=== PATIENT | female | born 1955 | race Caucasian/White ===

== ENCOUNTER 2023-03-08 16:31 | Inpatient (IN) ==
[2023-03-08] MEDS ORDERED: SODIUM CHLORIDE 0.9% 1000ML 1,000 ML IV ONE (17:31)
[2023-03-08] MEDS ORDERED: KETOROLAC TROMETHAMINE 15 MG/ML VIAL IV ONE ×2 (17:32→20:00)
[2023-03-08 17:45] LABS: Appearance Urine Cloudy (Clear); Bacteria Urine Automated Negative (Negative); Blood Urine 1+ (Negative); Color Urine Orange; Epithelial Cell Urine Auto >30 /lpf (0-5); Glucose Urine UA Negative (Negative); Ketones Urine Trace (Negative); Leukocyte Esterase Urine Trace (Negative); Nitrite Urine Negative (Negative); Protein Urine 2+ (Negative); Specific Gravity Urine 1.017 (1.000-1.030); Urobilinogen Urine Negative (Negative); pH Urine 5.5 (4.5-7.5)
[2023-03-08 18:07] LABS: Bilirubin Urine 1+ (Negative)
[2023-03-08 18:11] LABS: Basophils # (auto) 0.05 K/uL (0-0.2); Basophils % (auto) 0.2 %; Eosinophils # (auto) 0.04 K/uL (0-0.50); Eosinophils % (auto) 0.2 %; Hematocrit (blood only) 40.5 % (37.0-47.0); Hemoglobin 14.1 g/dl (12.0-16.0); Immature Granulocytes # (auto) 0.11 K/uL (0.01-0.20); Immature Granulocytes % (auto) 0.5 %; Lymphocytes % (auto) 9.8 %; Mean Corpuscular Hgb Conc 34.8 g/dL (32.0-36.0); Mean Corpuscular Volume 83.3 fL (80.0-100.0); Mean Platelet Volume 11.6 fL (9.4-12.4); Monocytes # (auto) 1.45 K/uL (0.11-0.59); Monocytes % (auto) 6.8 %; Neutrophils # (auto) 17.66 K/uL (1.40-6.50); Neutrophils % (auto) 82.5 %; Platelet Count 314 K/uL (130-400); RDW Coefficient of Variation 13.4 % (11.5-14.5); RDW Standard Deviation 41.2 fL (36.4-46.3); Red Blood Count 4.86 M/uL (4.20-5.40); White Blood Count 21.41 K/ul (4.8-10.8)
--- NOTE | 2023-03-08 18:16 | Emergency Department Note ---
Impression & Plan Abdominal pain, Acute pancreatitis, Leukocytosis ED Provider Note NAME: LUZ MARINA AUSTIN AGE: 67 SEX: F : 1955 ARRIVES VIA: Walk-In INFORMANT: Patient ED PROVIDER(S): Barry Sharif DO CHIEF COMPLAINT: abdominal pain HPI: Patient is a 67-year-old female who presents to the ER for right upper quadrant abdominal pain associate with nausea and vomiting. Patient has had no diarrhea. It has been present for the past 2 to 3 days. Pain is focal in the right upper quadrant. Denies any headache or change in vision. No chest pain or shortness of breath. No dysuria, urgency, or frequency. No previous abdominal surgeries. She was drinking water when she came in. She has not been eating much as she believes it makes it worse. She does not drink alcohol. PAST MEDICAL HISTORY:See Below PAST SURGICAL HISTORY:See Below FAMILY HISTORY:See Below SOCIAL HISTORY:See Below HOME MEDICATIONS:See Below ALLERGIES:See Below VITALS:See Below PHYSICAL EXAMINATION: GENERAL: Sitting up in bed, alert, well appearing, well nourished, no distress, non-toxic EYE EXAM: normal conjunctiva. OROPHARYNX: mucous membranes are moist NECK: supple, no nuchal rigidity, no adenopathy, non-tender LUNGS: Clear to auscultation. Normal chest wall mechanics HEART: no murmurs, S1 normal and S2 normal ABDOMEN: abdomen soft, RUQ abd pain, normo-active bowel sounds, no masses, no rebound or guarding. UPPER EXTREMITIES: upper extremities are grossly normal. LOWER EXTREMITIES: No pitting edema. NEURO EXAM: Normal sensorium, cranial nerves II-XII grossly intact, normal speech, no gross weakness of arms, no gross weakness of legs. MEDICAL DECISION MAKING: Patient is a 67-year-old female who presents ER for periumbilical/epigastric abdominal pain associate with nausea vomiting. IV was established blood work was obtained. Labs show leukocytosis 21,000. No significant anemia. BMP with mild hypokalemia 3.2. LFTs bilirubin was unremarkable with exception of a T. bili at 1.2. Lipase mildly elevated at 100. UA was contaminated with multiple epithelial cells. She was given IV Zosyn. COVID was negative. She was given IV pain medications. She was updated at bedside. Discussed with hospitalist Dr. Palapu approved for further evaluation management and treatment. She was given IV fluids. Patient was agreeable for admission. Did update her sister who was present at bedside during the whole evaluation and did provide additional history. Discussed with her care managers for admission. Triage Nursing notes reviewed. Limited review of prior medical records performed Vital Signs: reviewed and remarkable for tachy Differential diagnosis: Differential diagnoses includes but is not limited to gastritis, peptic ulcer disease, GERD, gallbladder disease, pancreatitis, small bowel obstruction, appendicitis, diverticulitis, hernia, urinary tract infection, torsion, perforation, trauma, infectious. ER treatment provided: See below Diagnostics interpreted by me include EKG and cardiac monitoring as listed below: -Cardiac Monitoring: An order was placed for continuous cardiac monitoring. The monitor shows a rate of 101 with sinus rhythm. -ECG: none -Laboratory studies:Interpreted by me as stated above in MDM and shown below. Imaging studies: Xrays: As interpreted by me:none CTs show: CT abdomen pelvis showed inflammation around the pancreas per my read CT abdomen pelvis per radiology showed pancreatitis with dilation of pancreatic duct Consultation(s): As described in MDM Procedures:none Critical Care: None Past Med/Surg History Social History Smoking Status: Former smoker Preferred Language: Guinean Feels Safe at Home: Yes Allergies Allergies Allergy/AdvReac Type Severity Reaction Status Date / Time oak Allergy Severe EYES SWELL Verified 03/08/23 17:49 SHUT & CRACK AT CORNERS ANTIBIOTICS Allergy Severe SEE COMMENT Uncoded 03/08/23 17:49 Home Meds Home Medications Medication Instructions Recorded Confirmed B 12 Complex 1 tab PO QPM 03/08/23 03/08/23 Vitamin K 3 1 tab PO QPM 03/08/23 03/08/23 amlodipine 5 mg tablet 5 mg PO QAM 03/08/23 03/08/23 atorvastatin 20 mg tablet 20 mg PO QAM 03/08/23 03/08/23 calcium carbonate 600 mg-vitamin 1 tab PO QPM 03/08/23 03/08/23 D3 10 mcg (400 unit) tablet (Calcium 600 + D(3)) cholecalciferol (vitamin D3) 25 0 mcg PO QPM 03/08/23 03/08/23 mcg (1,000 unit) capsule (Vitamin D3) coQ10 (ubiquinol) 200 mg capsule 200 mg PO QPM 03/08/23 03/08/23 ferrous sulfate 325 mg (65 mg 325 mg PO 3XWK 03/08/23 03/08/23 iron) tablet (iron) lisinopril 20 mg tablet 20 mg PO QAM 03/08/23 03/08/23 Results & Data (ED) Vital Signs Vital Signs - 24 hr 03/08/23 16:36 Temperature 36.8 C Temperature Source Temporal Artery Scan Pulse Rate 110 H Respiratory Rate 18 Respiratory Effort / Characteristics Non-Labored Blood Pressure 126/87 Blood Pressure Mean 100 Pulse Oximetry 97 Oxygen Delivery Method Room Air Sepsis Recent Fever Within 48 Hours No Sepsis New/Unexplained Change in Mental Status N/A Sepsis Action Taken by Nursing No Action Required Laboratory Data 03/08/23 17:56 03/08/23 17:56 Lab Results 03/08/23 03/08/23 03/08/23 Range/Units 17:35 17:56 17:56 WBC 21.41 H (4.8-10.8) K/ul RBC 4.86 (4.20-5.40) M/uL Hgb 14.1 (12.0-16.0) g/dl Hct 40.5 (37.0-47.0) % MCV 83.3 (80.0-100.0) fL MCH 29.0 (25.0-34.0) pg MCHC 34.8 (32.0-36.0) g/dL RDW Std Deviation 41.2 (36.4-46.3) fL RDW Coeff of Ivon 13.4 (11.5-14.5) % Plt Count 314 (130-400) K/uL MPV 11.6 (9.4-12.4) fL Immature Gran % (Auto) 0.5 % Neut % (Auto) 82.5 % Lymph % (Auto) 9.8 % Adams % (Auto) 6.8 % Eos % (Auto) 0.2 % Baso % (Auto) 0.2 % Neut # (Auto) 17.66 H (1.40-6.50) K/uL Lymph # (Auto) 2.10 (1.2-3.4) K/uL Adams # (Auto) 1.45 H (0.11-0.59) K/uL Eos # (Auto) 0.04 (0-0.50) K/uL Baso # (Auto) 0.05 (0-0.2) K/uL Immature Gran # (Auto) 0.11 (0.01-0.20) K/uL Sodium 132 L (136-145) mmol/L Potassium 3.2 L (3.5-5.1) mmol/L Chloride 100 (98-107) mmol/L Carbon Dioxide 23 (21-32) mmol/L Anion Gap 9 (3-11) BUN 20 (6-23) mg/dl Creatinine 0.94 (0.6-1.2) mg/dl Est Cr Clr Drug Dosing 55.0 ml/min Est GFR ( Amer) 72.2 ml/min Est GFR (Non-Af Amer) 62.3 ml/min BUN/Creatinine Ratio 21.3 H (10-20) Glucose 110 H (70-99(Fasting)) mg/dl Calcium 9.5 (8.6-10.3) mg/dl Total Bilirubin 1.2 H (0.2-1.0) mg/dl AST 28 (13-39) U/L ALT 34 (7-52) U/L Alkaline Phosphatase 120 H (34-104) U/L Total Protein 7.8 (6.0-8.3) gm/dl Albumin 4.0 (3.4-5.0) gm/dl Globulin 3.8 (2.5-4.0) gm/dl Albumin/Globulin Ratio 1.1 (0.9-2) Lipase 94 H (11-82) U/L Urine Color [place] Urine Appearance Cloudy A (Clear) Urine pH 5.5 (4.5-7.5) Ur Specific [place] 1.017 (1.000-1.030) Urine Protein 2+ H (Negative) Urine Glucose (UA) Negative (Negative) Urine Ketones Trace H (Negative) Urine Blood 1+ H (Negative) Urine Nitrite Negative (Negative) Urine Bilirubin 1+ H (Negative) Urine Urobilinogen Negative (Negative) Ur Leukocyte Esterase Trace H (Negative) Urine WBC (Auto) 5-10 H (0-5) /hpf Urine RBC (Auto) 5-10 H (0-4) /hpf U Hyaline Cast (Auto) 5-10 H (0-5) /lpf U Epithel Cells (Auto) >30 H (0-5) /lpf Urine Bacteria (Auto) Negative (Negative) Ur Renal Epithelial Cell Not Reportable Granular Casts 1-5 H (0) /lpf SARS-CoV-2, RNA, NAAT (NEGATIVE) 03/08/23 Range/Units 20:13 WBC (4.8-10.8) K/ul RBC (4.20-5.40) M/uL Hgb (12.0-16.0) g/dl Hct (37.0-47.0) % MCV (80.0-100.0) fL MCH (25.0-34.0) pg MCHC (32.0-36.0) g/dL RDW Std Deviation (36.4-46.3) fL RDW Coeff of Ivon (11.5-14.5) % Plt Count (130-400) K/uL MPV (9.4-12.4) fL Immature Gran % (Auto) % Neut % (Auto) % Lymph % (Auto) % Adams % (Auto) % Eos % (Auto) % Baso % (Auto) % Neut # (Auto) (1.40-6.50) K/uL Lymph # (Auto) (1.2-3.4) K/uL Adams # (Auto) (0.11-0.59) K/uL Eos # (Auto) (0-0.50) K/uL Baso # (Auto) (0-0.2) K/uL Immature Gran # (Auto) (0.01-0.20) K/uL Sodium (136-145) mmol/L Potassium (3.5-5.1) mmol/L Chloride (98-107) mmol/L Carbon Dioxide (21-32) mmol/L Anion Gap (3-11) BUN (6-23) mg/dl Creatinine (0.6-1.2) mg/dl Est Cr Clr Drug Dosing ml/min Est GFR ( Amer) ml/min Est GFR (Non-Af Amer) ml/min BUN/Creatinine Ratio (10-20) Glucose (70-99(Fasting)) mg/dl Calcium (8.6-10.3) mg/dl Total Bilirubin (0.2-1.0) mg/dl AST (13-39) U/L ALT (7-52) U/L Alkaline Phosphatase (34-104) U/L Total Protein (6.0-8.3) gm/dl Albumin (3.4-5.0) gm/dl Globulin (2.5-4.0) gm/dl Albumin/Globulin Ratio (0.9-2) Lipase (11-82) U/L Urine Color Urine Appearance (Clear) Urine pH (4.5-7.5) Ur Specific [place] (1.000-1.030) Urine Protein (Negative) Urine Glucose (UA) (Negative) Urine Ketones (Negative) Urine Blood (Negative) Urine Nitrite (Negative) Urine Bilirubin (Negative) Urine Urobilinogen (Negative) Ur Leukocyte Esterase (Negative) Urine WBC (Auto) (0-5) /hpf Urine RBC (Auto) (0-4) /hpf U Hyaline Cast (Auto) (0-5) /lpf U Epithel Cells (Auto) (0-5) /lpf Urine Bacteria (Auto) (Negative) Ur Renal Epithelial Cell Granular Casts (0) /lpf SARS-CoV-2, RNA, NAAT NEGATIVE (NEGATIVE) Administered Medications Discontinued Medications Sodium Chloride (Nss 1000ml) 1,000 mls @ 999 mls/hr IV .Q1H1M ONE Stop: 03/08/23 18:31 Last Infusion: 03/08/23 19:39 Dose: 0 mls/hr Documented By: Admin: 03/08/23 18:11 Dose: 999 mls/hr Documented By: CONNIE Piperacillin Sod/Tazobactam Sod (Zosyn) 4.5 gm in 120 mls @ 240 mls/hr IV NOW ONE Stop: 03/08/23 18:51 Last Infusion: 03/08/23 19:39 Dose: 0 mls/hr Documented By: Admin: 03/08/23 19:05 Dose: 240 mls/hr Documented By: DENA Piperacillin Sod/Tazobactam Sod (Zosyn) 4.5 gm in 120 mls @ 240 mls/hr IV NOW ONE Stop: 03/08/23 19:28 Last Admin: 03/08/23 19:31 Dose: Not Given Documented By: DENA Ioversol (Optiray 350 100ml) 81 ml IV ONCE ONE Stop: 03/08/23 18:56 Last Admin: 03/08/23 18:55 Dose: 81 ml Documented By: MOHSEN Ketorolac Tromethamine (Ketorolac Tromethamine 15 Mg/Ml Vial) 10 mg IV NOW ONE Stop: 03/08/23 17:33 Last Admin: 03/08/23 18:11 Dose: 10 mg Documented By: AP Imaging Data Radiologist's Impression: Abdomen/Pelvis CT 03/08/23 17:31 CT SCAN OF THE ABDOMEN AND PELVIS WITH IV CONTRAST CLINICAL HISTORY: Right upper quadrant abdominal pain. COMPARISON STUDY: No priors. TECHNIQUE: Following the IV administration of 81 cc of Optiray 350, CT scan of the abdomen and pelvis is performed from the lung bases to the proximal femora. Images are reviewed in the axial, sagittal, and coronal planes. IV contrast was administered without complication. A dose lowering technique was utilized adhering to the principles of ALARA. CT DOSE: 622.73 mGy.cm FINDINGS: Lung bases: The heart is normal in size and without pericardial effusion. The lung bases are clear. Liver: The contrast-enhanced liver is top normal in size. The liver demonstrates diffusely diminished attenuation indicating steatosis. Fatty sparing is seen adjacent to the gallbladder fossa. There is no intrahepatic biliary ductal dilatation. The hepatic veins and portal veins are patent. Gallbladder: Unremarkable. Spleen: Normal in size and attenuation. Pancreas: The pancreas is enlarged and edematous. There is peripancreatic inflammation and fluid consistent with acute pancreatitis. The gland enhances t hroughout. No organized peripancreatic fluid collection is identified. The distal pancreatic duct is mildly dilated measuring up to 6 mm. The splenic vein is patent. Adrenal glands: Unremarkable. Kidneys: The contrast enhanced kidneys are normal in size and without hydronephrosis. The kidneys enhance symmetrically. Abdominal vasculature: The abdominal aorta is normal in course and caliber noting moderate atherosclerotic calcification. Bowel: There is moderate colonic diverticulosis without CT evidence of acute diverticulitis. No bowel obstruction is seen. Residual enteric contrast is seen in the right colon. The appendix is well-visualized and normal. Peritoneum: There is no intraperitoneal free air or abdominal ascites. There is a fat-containing umbilical hernia. Lymphadenopathy: None. Pelvic viscera: The bladder, uterus, and adnexa are normal as visualized. Skeletal structures: The skeletal structures are osteopenic. No lytic or blastic lesions are seen. There is mild to moderate lumbosacral spondylosis. Sclerotic change is noted in the pubic symphysis. IMPRESSION: 1. Findings are consistent with acute pancreatitis. Correlate with clinical and laboratory findings. 2. The gland enhances throughout. No organized peripancreatic fluid collection is seen. 3. The distal pancreatic duct is dilated measuring up to 6 mm. This is of indeterminate in appearance. Follow-up with a dedicated pancreas protocol CT or MRI in several weeks' time (following resolution of acute pancreatitis) is recommended to reassess the underlying pancreatic parenchyma and exclude underlying mass lesion. 4. Hepatic steatosis. 5. Colonic diverticulosis without CT evidence of acute diverticulitis. 6. Additional findings as above. ACT 112: Negative or not required by law. Electronically signed by: Albino Mccormack M.D. 03/08/2023 8:33 PM Discharge Plan Visit Data Chief Complaint: Referred by Doctor Stated Complaint: PAIN IN BACK, ABDOMINAL PAIN, CONSTIPATION ED Provider: Barry Sharif Discharge Problem: Abdominal pain, Acute pancreatitis, Leukocytosis Forms Stand Alone Forms: [employer] Prescriptions Prescriptions: No Action B 12 Complex 1 tab PO QPM Rx Instructions: UNKNOWN STRENGTH atorvastatin 20 mg tablet 20 mg PO QAM lisinopril 20 mg tablet 20 mg PO QAM amlodipine 5 mg tablet 5 mg PO QAM ferrous sulfate [iron] 325 mg (65 mg iron) Tablet 325 mg PO 3XWK cholecalciferol (vitamin D3) [Vitamin D3] 25 mcg (1,000 unit) Capsule 0 mcg PO QPM Rx Instructions: PT UNSURE OF STRENGTH calcium carbonate-vitamin D3 [Calcium 600 + D(3)] 600 mg-10 mcg (400 unit) Tablet 1 tab PO QPM coQ10 (ubiquinol) 200 mg Capsule 200 mg PO QPM Vitamin K 3 1 tab PO QPM Rx Instructions: UNKNOWN STRENGTH Referrals Referrals: Amauri Antony MD [Primary Care Provider] -
[2023-03-08] MEDS ORDERED: PIPERACILLIN/TAZOBACTAM 4.5 GM/120 ML BAG IV ONE ×2 (18:22→18:59)
[2023-03-08 18:24] LABS: Albumin Globulin Ratio 1.1 (0.9-2); BUN Creatinine Ratio 21.3 (10-20); Bilirubin,Total 1.2 mg/dl (0.2-1.0); Calcium 9.5 mg/dl (8.6-10.3); Est GFR (African American) 72.2 ml/min; Est GFR (Non-African American) 62.3 ml/min; Globulin 3.8 gm/dl (2.5-4.0); Potassium 3.2 mmol/L (3.5-5.1); Total Protein 7.8 gm/dl (6.0-8.3)
[2023-03-08] MEDS ORDERED: OPTIRAY 350 100ml IV ONE (18:55)
--- NOTE | 2023-03-08 20:36 | CT Scan Report ---
CT SCAN OF THE ABDOMEN AND PELVIS WITH IV CONTRAST CLINICAL HISTORY: Right upper quadrant abdominal pain. COMPARISON STUDY: No priors. TECHNIQUE: Following the IV administration of 81 cc of Optiray 350, CT scan of the abdomen and pelvi s is performed from the lung bases to the proximal femora. Images are reviewed in the axial, sagittal , and coronal planes. IV contrast was administered without complication. A dose lowering technique wa s utilized adhering to the principles of ALARA. CT DOSE: 622.73 mGy.cm FINDINGS: Lung bases: The heart is normal in size and without pericardial effusion. The lung bases are clear. Liver: The contrast-enhanced liver is top normal in size. The liver demonstrates diffusely diminished attenuation indicating steatosis. Fatty sparing is seen adjacent to the gallbladder fossa. There is no intrahepatic biliary ductal dilatation. The hepatic veins and portal veins are patent. Gallbladder: Unremarkable. Spleen: Normal in size and attenuation. Pancreas: The pancreas is enlarged and edematous. There is peripancreatic inflammation and fluid cons istent with acute pancreatitis. The gland enhances throughout. No organized peripancreatic fluid guanako ection is identified. The distal pancreatic duct is mildly dilated measuring up to 6 mm. The splenic vein is patent. Adrenal glands: Unremarkable. Kidneys: The contrast enhanced kidneys are normal in size and without hydronephrosis. The kidneys enh ance symmetrically. Abdominal vasculature: The abdominal aorta is normal in course and caliber noting moderate atheroscle rotic calcification. Bowel: There is moderate colonic diverticulosis without CT evidence of acute diverticulitis. No bowel obstruction is seen. Residual enteric contrast is seen in the right colon. The appendix is well-vis ualized and normal. Peritoneum: There is no intraperitoneal free air or abdominal ascites. There is a fat-containing umbi lical hernia. Lymphadenopathy: None. Pelvic viscera: The bladder, uterus, and adnexa are normal as visualized. Skeletal structures: The skeletal structures are osteopenic. No lytic or blastic lesions are seen. Th ere is mild to moderate lumbosacral spondylosis. Sclerotic change is noted in the pubic symphysis. IMPRESSION: 1. Findings are consistent with acute pancreatitis. Correlate with clinical and laboratory findings. 2. The gland enhances throughout. No organized peripancreatic fluid collection is seen. 3. The distal pancreatic duct is dilated measuring up to 6 mm. This is of indeterminate in appearance . Follow-up with a dedicated pancreas protocol CT or MRI in several weeks' time (following resolution of acute pancreatitis) is recommended to reassess the underlying pancreatic parenchyma and exclude u nderlying mass lesion. 4. Hepatic steatosis. 5. Colonic diverticulosis without CT evidence of acute diverticulitis. 6. Additional findings as above. ACT 112: Negative or not required by law. Electronically signed by: Albino Mccormack M.D. 03/08/2023 8:33 PM
--- NOTE | 2023-03-08 23:09 | History and Physical Report ---
DATE OF ADMISSION: 03/08/2023. CHIEF COMPLAINT: Abdominal pain. HISTORY OF PRESENT ILLNESS: A 67-year-old female with past medical history significant for prediabetes, hypertension, restless legs syndrome, generalized anxiety disorder, history of obesity, who presents with severe abdominal pain starting last Friday. It is in the center of the abdomen initially radiating to flank then now radiating to back, it is 7-8/10 in severity. Also, some nausea. She had a low-grade fever on and Friday and she had episode of vomiting on , but right now she has lot of nausea and not eating much food because of nausea for the last few days and did not move her bowel since her symptom started. Normal bladder movements. No chest pain, no shortness of breath, no cough, no headache, no blurred visions. Lightheaded because not eating. No earache, no runny nose, no sore throat. Currently, resting comfortably and hemodynamically stable. ALLERGIES: TO SULFA ANTIBIOTICS, AMPICILLIN, CAT DANDER. PAST MEDICAL HISTORY: As mentioned above. PAST SURGICAL HISTORY: Colonoscopy, dental surgery, foreign body removal from right hand, relieve of inner eye pressure, cataract surgery. MEDICATIONS: The patient is on amlodipine 5 mg p.o. daily, atorvastatin 20 mg p.o. daily, B12 complex one tablet daily, calcium carbonate plus vitamin D one tablet p.o. p.m., ferrous sulfate 325 mg 3 times daily, lisinopril 40 mg p.o. daily. FAMILY HISTORY: Significant for brother has alcoholism; father has alcoholism, diabetes, heart attack at age of 68, hypertension; mother had stroke, alcoholism, diabetes, history of stroke. SOCIAL HISTORY: . Quit smoking in 2009. Alcohol, rarely. No drug use. REVIEW OF SYSTEMS: As per HPI. Rest of the review of systems is negative. PHYSICAL EXAMINATION: GENERAL: The patient is of moderate build, not in acute distress. VITAL SIGNS: Temperature 36.8, pulse 110, respiratory rate 18, blood pressure 126/87, oxygen 97% on room air. HEENT: Pupils equal, round and reactive to light. Oral mucosa moist. NECK: No JVD, no neck masses. CARDIOVASCULAR: S1 and S2 heard. Regular rate and rhythm. No murmur, no gallop. RESPIRATORY SYSTEM: Normal AP diameter. No accessory muscle use. No wheezing, no crackles. ABDOMEN: Soft, bowel sounds present. Mild tenderness in the epigastric region. No guarding, no rigidity, no distention. CENTRAL NERVOUS SYSTEM: Cranial nerves II-XII grossly intact, nonfocal. EXTREMITIES: No edema, no erythema. LABORATORY DATA: WBC 21, hemoglobin 14.1, hematocrit 40.5, platelets 314. Sodium 132, potassium 3.2, chloride 100, bicarbonate 23, BUN 20, creatinine 0.9, serum glucose 110, calcium 9.5, total bilirubin 1.2, AST 28, ALT 34, alkaline phosphatase 120. Lipase 94. Urinalysis, trace ketone, trace leukocyte esterase. SARS-CoV-2 rapid test negative. IMAGING DATA: CT abdomen and pelvis with IV contrast consistent with acute pancreatitis, no organized peripancreatic fluid seen. Distal pancreatic ductal dilatation 6 mm indeterminate significance. Follow up dedicated pancreas protocol CT or MRI in several weeks is recommended. Colonic diverticulosis without evidence of diverticulitis. ASSESSMENT AND PLAN: A 67-year-old female presents with abdominal pain and found to have acute pancreatitis. 1. Acute pancreatitis. The patient has no history of alcoholism and no gallstones. Etiology unclear. The patient says she is on lisinopril for less than 1 year. We will keep her n.p.o., IV Ringer's [id number] mL per hour, IV antiemetics, IV pain medication p.r.n. Consult GI in the a.m. for further recommendations. 2. Hypertension: Continue amlodipine and lisinopril. Monitor the blood pressure. 3. Leukocytosis: Possible UTI. Omnicef. Follow the cultures. 4. Hyperlipidemia: On statin. 5. Dilated Pancreatic duct? Needs followup. 6. Deep venous thrombosis prophylaxis: Lovenox. DISPOSITION: Closely monitor in the medical floor. PT/OT prior to discharge. Social service to help with discharge planning. Job ID: [id number] [facility]
[2023-03-08] MEDS ORDERED: POTASSIUM CHLORIDE CRTAB 20 MEQ TABCR PO STA (23:24)
[2023-03-08] MEDS ORDERED: ONDANSETRON INJ 2 MG/ML 2 ML VIAL IV PRN (23:24)
[2023-03-08] MEDS ORDERED: HYDROmorphone INJ 0.5 MG/0.5 ML SYR IV PRN (23:24)
[2023-03-08] MEDS: ACETAMINOPHEN 325 MG TAB PO PRN (23:38)
[2023-03-08] MEDS: LACTATED RINGER'S 1,000 ML IV SCH (23:39)
[2023-03-09] MEDS: ENOXAPARIN INJ 40 MG/0.4 ML SYR SQ SCH ×2 (00:06→19:48)
[2023-03-09] MEDS: ACETAMINOPHEN 325 MG TAB PO PRN ×5 (04:50→22:56)
[2023-03-09] MEDS: LACTATED RINGER'S 1,000 ML IV SCH ×3 (04:50→20:07)
[2023-03-09 06:47] LABS: Basophils # (auto) 0.05 K/uL (0-0.2); Basophils % (auto) 0.4 %; Eosinophils # (auto) 0.13 K/uL (0-0.50); Eosinophils % (auto) 0.9 %; Hematocrit (blood only) 39.1 % (37.0-47.0); Hemoglobin 13.1 g/dl (12.0-16.0); Immature Granulocytes # (auto) 0.08 K/uL (0.01-0.20); Immature Granulocytes % (auto) 0.6 %; Lymphocytes # (auto) 1.71 K/uL (1.2-3.4); Lymphocytes % (auto) 12.1 %; Mean Corpuscular Hemoglobin 28.9 pg (25.0-34.0); Mean Corpuscular Hgb Conc 33.5 g/dL (32.0-36.0); Mean Corpuscular Volume 86.1 fL (80.0-100.0); Mean Platelet Volume 11.4 fL (9.4-12.4); Monocytes # (auto) 1.09 K/uL (0.11-0.59); Monocytes % (auto) 7.7 %; Neutrophils # (auto) 11.12 K/uL (1.40-6.50); Neutrophils % (auto) 78.3 %; Platelet Count 264 K/uL (130-400); RDW Coefficient of Variation 13.5 % (11.5-14.5); RDW Standard Deviation 42.5 fL (36.4-46.3); Red Blood Count 4.54 M/uL (4.20-5.40); White Blood Count 14.18 K/ul (4.8-10.8)
[2023-03-09 07:04] LABS: Calcium 8.9 mg/dl (8.6-10.3); Creatinine Clr Calc Pharmacy 70.8 ml/min; Est GFR (African American) 98.1 ml/min; Est GFR (Non-African American) 84.6 ml/min; Magnesium 2.2 mg/dl (1.7-2.4); Potassium 3.7 mmol/L (3.5-5.1)
[2023-03-09] MEDS: CEFDINIR 300 MG CAP PO SCH ×2 (08:19→20:50)
[2023-03-09] MEDS: ATORVASTATIN 20 MG TAB PO SCH (08:19)
[2023-03-09] MEDS: amLODIPine BESYLATE 5 MG TAB PO SCH (08:19)
--- NOTE | 2023-03-09 13:11 | Hospitalist Progress Note ---
Date of Service March 09, 2023 Assessment & Plan (1) Abdominal pain: (2) Acute pancreatitis: (3) Leukocytosis: Plan: Patient is a 59-year-old female with past medical history of hypertension, hyperlipidemia who presented to the ED with abdominal pain since last 4 days. On presentation, she was found to have leukocytosis. Other lab work reviewed; lipase mildly elevated to 94. No other significant lab abnormality. CT abdomen and pelvis showed features consistent with acute pancreatitis. Distal pancreatic duct dilation 6 mm. No history of increased alcohol intake CT does not show any gallstone. Continue supportive care with IV fluids; rate decreased today to 100 cc/h as patient'S pain has improved. Pain medication as needed GI consulted; appreciate recommendation. Obtain lipid panel in AM. Patient also found to have elevated leukocytosis. Urine culture did not show any growth. She is currently on cefdinir. We will continue the same for now. Plan Other problems; Hypertension: Continue amlodipine and lisinopril. Monitor the blood pressure. Hyperlipidemia: On statin. Lovenox Full code Dispodischarge home after resolution of medical issues. Admission and Anticipated Discharge Date Admission Date: March 08, 2023 Subjective Patient seen and examined at bedside. She reports that she had a bowel movement this morning; reports that her abdominal pain has significantly improved since the bowel movement. Denies any fever or chills. Hemodynamic stable and saturating well on room air. Review of Systems Review of Systems: All systems reviewed & are unremarkable except as noted in Subjective Physical Exam Physical Exam: Constitutional: WD/WN, vitals as above, NAD, sitting up in bed, pleasant, c onversing easily Respiratory: normal respiratory effort, lungs clear to auscultation, no wheeze, rales, rhonchi. Normal insp/exp effort, no accessory muscle use Cardiovascular: RRR, no murmur, no edema Vessels: no JVD or carotid bruit Chest: normal inspection of chest Abdomen: Mild tenderness in epigastric region. Soft. Musculoskeletal: no cyanosis or clubbing, extremities motor strength 5/5 Skin: no rashes, warm and dry normal turgor Neurologic: PERRL, EOMI, accommodation nl, no face palsy, no dysarthria CN's II- XI intact bilaterally and moves all extremities Psychiatric: A+Ox3, euthymic affect Lymphatic: no cervical or axillary lymphadenopathy : deferred Results & Data Results & Data Vital Signs (Past 12 Hours) Vital Signs Temp Pulse Resp BP Pulse Ox O2 Del Method 03/09/23 08:20 Room Air 03/09/23 07:55 36.5 C 68 16 130/77 97 Room Air Laboratory Results Laboratory Results WBC 14.18 K/ul (4.8-10.8) H 03/09/23 06:25 RBC 4.54 M/uL (4.20-5.40) 03/09/23 06:25 Hgb 13.1 g/dl (12.0-16.0) 03/09/23 06:25 Hct 39.1 % (37.0-47.0) 03/09/23 06:25 MCV 86.1 fL (80.0-100.0) 03/09/23 06:25 MCH 28.9 pg (25.0-34.0) 03/09/23 06:25 MCHC 33.5 g/dL (32.0-36.0) 03/09/23 06:25 RDW Std Deviation 42.5 fL (36.4-46.3) 03/09/23 06:25 RDW Coeff of Ivon 13.5 % (11.5-14.5) 03/09/23 06:25 Plt Count 264 K/uL (130-400) 03/09/23 06:25 MPV 11.4 fL (9.4-12.4) 03/09/23 06:25 Immature Gran % (Auto) 0.6 % 03/09/23 06:25 Neut % (Auto) 78.3 % 03/09/23 06:25 Lymph % (Auto) 12.1 % 03/09/23 06:25 [place] % (Auto) 7.7 % 03/09/23 06:25 Eos % (Auto) 0.9 % 03/09/23 06:25 Baso % (Auto) 0.4 % 03/09/23 06:25 Neut # (Auto) 11.12 K/uL (1.40-6.50) H 03/09/23 06:25 Lymph # (Auto) 1.71 K/uL (1.2-3.4) 03/09/23 06:25 [place] # (Auto) 1.09 K/uL (0.11-0.59) H 03/09/23 06:25 Eos # (Auto) 0.13 K/uL (0-0.50) 03/09/23 06:25 Baso # (Auto) 0.05 K/uL (0-0.2) 03/09/23 06:25 Immature Gran # (Auto) 0.08 K/uL (0.01-0.20) 03/09/23 06:25 Sodium 139 mmol/L (136-145) 03/09/23 06:25 Potassium 3.7 mmol/L (3.5-5.1) 03/09/23 06:25 Chloride 108 mmol/L (98-107) H 03/09/23 06:25 Carbon Dioxide 23 mmol/L (21-32) 03/09/23 06:25 Anion Gap 8 (3-11) 03/09/23 06:25 BUN 19 mg/dl (6-23) 03/09/23 06:25 Creatinine 0.73 mg/dl (0.6-1.2) 03/09/23 06:25 Est Cr Clr Drug Dosing 70.8 ml/min 03/09/23 06:25 Est GFR ( Amer) 98.1 ml/min 03/09/23 06:25 Est GFR (Non-Af Amer) 84.6 ml/min 03/09/23 06:25 BUN/Creatinine Ratio 26.0 (10-20) H 03/09/23 06:25 Glucose 103 mg/dl (70-99(Fasting)) H 03/09/23 06:25 Calcium 8.9 mg/dl (8.6-10.3) 03/09/23 06:25 Magnesium 2.2 mg/dl (1.7-2.4) 03/09/23 06:25 Total Bilirubin 1.2 mg/dl (0.2-1.0) H 03/08/23 17:56 AST 28 U/L (13-39) 03/08/23 17:56 ALT 34 U/L (7-52) 03/08/23 17:56 Alkaline Phosphatase 120 U/L (34-104) H 03/08/23 17:56 Total Protein 7.8 gm/dl (6.0-8.3) 03/08/23 17:56 Albumin 4.0 gm/dl (3.4-5.0) 03/08/23 17:56 Globulin 3.8 gm/dl (2.5-4.0) 03/08/23 17:56 Albumin/Globulin Ratio 1.1 (0.9-2) 03/08/23 17:56 Lipase 94 U/L (11-82) H 03/08/23 17:56 Urine Color Martin 03/08/23 17:35 Urine Appearance Cloudy (Clear) A 03/08/23 17:35 Urine pH 5.5 (4.5-7.5) 03/08/23 17:35 Ur Specific [place] 1.017 (1.000-1.030) 03/08/23 17:35 Urine Protein 2+ (Negative) H 03/08/23 17:35 Urine Glucose (UA) Negative (Negative) 03/08/23 17:35 Urine Ketones Trace (Negative) H 03/08/23 17:35 Urine Blood 1+ (Negative) H 03/08/23 17:35 Urine Nitrite Negative (Negative) 03/08/23 17:35 Urine Bilirubin 1+ (Negative) H 03/08/23 17:35 Urine Urobilinogen Negative (Negative) 03/08/23 17:35 Ur Leukocyte Esterase Trace (Negative) H 03/08/23 17:35 Urine WBC (Auto) 5-10 /hpf (0-5) H 03/08/23 17:35 Urine RBC (Auto) 5-10 /hpf (0-4) H 03/08/23 17:35 U Hyaline Cast (Auto) 5-10 /lpf (0-5) H 03/08/23 17:35 U Epithel Cells (Auto) >30 /lpf (0-5) H 03/08/23 17:35 Urine Bacteria (Auto) Negative (Negative) 03/08/23 17:35 Ur Renal Epithelial Cell Not Reportable 03/08/23 17:35 Granular Casts 1-5 /lpf (0) H 03/08/23 17:35 SARS-CoV-2, RNA, NAAT NEGATIVE (NEGATIVE) 03/08/23 20:13 Impressions Abdomen/Pelvis CT 03/08/23 17:31 CT SCAN OF THE ABDOMEN AND PELVIS WITH IV CONTRAST CLINICAL HISTORY: Right upper quadrant abdominal pain. COMPARISON STUDY: No priors. TECHNIQUE: Following the IV administration of 81 cc of Optiray 350, CT scan of the abdomen and pelvis is performed from the lung bases to the proximal femora. Images are reviewed in the axial, sagittal, and coronal planes. IV contrast was administered without complication. A dose lowering technique was utilized adhering to the principles of ALARA. CT DOSE: 622.73 mGy.cm FINDINGS: Lung bases: The heart is normal in size and without pericardial effusion. The lung bases are clear. Liver: The contrast-enhanced liver is top normal in size. The liver demonstrates diffusely diminished attenuation indicating steatosis. Fatty sparing is seen adjacent to the gallbladder fossa. There is no intrahepatic biliary ductal dilatation. The hepatic veins and portal veins are patent. Gallbladder: Unremarkable. Spleen: Normal in size and attenuation. Pancreas: The pancreas is enlarged and edematous. There is peripancreatic inflammation and fluid consistent with acute pancreatitis. The gland enhances throughout. No organized peripancreatic fluid collection is identified. The distal pancreatic duct is mildly dilated measuring up to 6 mm. The splenic vein is patent. Adrenal glands: Unremarkable. Kidneys: The contrast enhanced kidneys are normal in size and without hydronephrosis. The kidneys enhance symmetrically. Abdominal vasculature: The abdominal aorta is normal in course and caliber noting moderate atherosclerotic calcification. Bowel: There is moderate colonic diverticulosis without CT evidence of acute diverticulitis. No bowel obstruction is seen. Residual enteric contrast is seen in the right colon. The appendix is well-visualized and normal. Peritoneum: There is no intraperitoneal free air or abdominal ascites. There is a fat-containing umbilical hernia. Lymphadenopathy: None. Pelvic viscera: The bladder, uterus, and adnexa are normal as visualized. Skeletal structures: The skeletal structures are osteopenic. No lytic or blastic lesions are seen. There is mild to moderate lumbosacral spondylosis. Sclerotic change is noted in the pubic symphysis. IMPRESSION: 1. Findings are consistent with acute pancreatitis. Correlate with clinical and laboratory findings. 2. The gland enhances throughout. No organized peripancreatic fluid collection is seen. 3. The distal pancreatic duct is dilated measuring up to 6 mm. This is of indeterminate in appearance. Follow-up with a dedicated pancreas protocol CT or MRI in several weeks' time (following resolution of acute pancreatitis) is recommended to reassess the underlying pancreatic parenchyma and exclude underlying mass lesion. 4. Hepatic steatosis. 5. Colonic diverticulosis without CT evidence of acute diverticulitis. 6. Additional findings as above. ACT 112: Negative or not required by law. Electronically signed by: Albino Mccormack M.D. 03/08/2023 8:33 PM
[2023-03-09] MEDS ORDERED: VITAMIN B COMPLEX TAB PO SCH (21:00)
[2023-03-09] MEDS ORDERED: CALCIUM 600MG + VIT D 400 IU TAB PO SCH (21:00)
[2023-03-09 21:13] LABS: Adenovirus F 40/41 PCR Not Detected (NotDetected); Astrovirus PCR Not Detected (NotDetected); Campylobacter PCR Not Detected (NotDetected); Cryptosporidium PCR Not Detected (NotDetected); Cyclospora cayetanensis PCR Not Detected (NotDetected); Entamoeba histolytica PCR Not Detected (NotDetected); Enteroaggregative E.coli(EAEC) Not Detected (NotDetected); Enteropathogenic E.coli (EPEC) Not Detected (NotDetected); Enterotoxigenic E.coli (ETEC) Not Detected (NotDetected); Giardia lamblia PCR Not Detected (NotDetected); Norovirus GI/GII PCR Not Detected (NotDetected); Plesiomonas shigelloides PCR Not Detected (NotDetected); Rotavirus A PCR Not Detected (NotDetected); Salmonella PCR Not Detected (NotDetected); Sapovirus PCR Not Detected (NotDetected); Shiga-like Toxin E.coli (STEC) Not Detected (NotDetected); Shigella/Enteroinvasive E.coli Not Detected (NotDetected); Vibrio cholerae PCR Not Detected (NotDetected); Vibrio species PCR Not Detected (NotDetected); Yersinia enterocolitica PCR Not Detected (NotDetected)
[2023-03-10] MEDS: LACTATED RINGER'S 1,000 ML IV SCH (06:10)
[2023-03-10] MEDS: ATORVASTATIN 20 MG TAB PO SCH (07:26)
[2023-03-10] MEDS: CEFDINIR 300 MG CAP PO SCH (07:26)
[2023-03-10] MEDS: amLODIPine BESYLATE 5 MG TAB PO SCH (07:26)
[2023-03-10 08:32] LABS: Basophils # (auto) 0.09 K/uL (0-0.2); Basophils % (auto) 0.8 %; Eosinophils # (auto) 0.33 K/uL (0-0.50); Eosinophils % (auto) 2.8 %; Hematocrit (blood only) 38.1 % (37.0-47.0); Hemoglobin 12.8 g/dl (12.0-16.0); Immature Granulocytes # (auto) 0.06 K/uL (0.01-0.20); Immature Granulocytes % (auto) 0.5 %; Lymphocytes % (auto) 14.6 %; Mean Corpuscular Hemoglobin 29.1 pg (25.0-34.0); Mean Corpuscular Hgb Conc 33.6 g/dL (32.0-36.0); Mean Corpuscular Volume 86.6 fL (80.0-100.0); Mean Platelet Volume 11.7 fL (9.4-12.4); Monocytes # (auto) 0.66 K/uL (0.11-0.59); Monocytes % (auto) 5.7 %; Neutrophils % (auto) 75.6 %; Platelet Count 286 K/uL (130-400); RDW Coefficient of Variation 13.6 % (11.5-14.5); RDW Standard Deviation 42.5 fL (36.4-46.3); White Blood Count 11.64 K/ul (4.8-10.8)
[2023-03-10] MEDS ORDERED: ADVANCED PROBIOTIC 1250 MG CAPSULE PO SCH (09:30)
[2023-03-10 10:17] LABS: Albumin Globulin Ratio 1.2 (0.9-2); Albumin Level 3.6 gm/dl (3.4-5.0); BUN Creatinine Ratio 14.9 (10-20); Bilirubin,Total 0.7 mg/dl (0.2-1.0); Calcium 9.1 mg/dl (8.6-10.3); Chol HDL Ratio 3.8 (0-5); Creatinine Clr Calc Pharmacy 77.1 ml/min; Est GFR (African American) 104.7 ml/min; Est GFR (Non-African American) 90.3 ml/min; Globulin 3.1 gm/dl (2.5-4.0); Potassium 3.6 mmol/L (3.5-5.1); Total Protein 6.7 gm/dl (6.0-8.3)
--- NOTE | 2023-03-10 10:33 | Discharge Summary ---
Discharge Summary Date of Service March 10, 2023 Notes For Next Care Provider Patient admitted for abdominal pain and diagnosed with acute pancreatitis. Initial CT scan showed enlarged and edematous pancreas with peripancreatic inflammation and fluid consistent with acute pancreatitis. The distal pancreatic duct is mildly dilated measuring up to 6 mm. She was treated conservatively and seen by gastroenterology who recommends outpatient EUS. On day of discharge her LFTs were mildly elevated with AST 61, ALT 101, Alk phos of 162 and a normal total bilirubin. Recommend repeat LFTs at hospital follow-up and ensure appropriate gastroenterology follow-up. Lastly, initial urinalysis consistent with possible infection and therefore treated with course of antibiotics. Urine culture was negative. Medication Changes From Visit Continue cefdinir 300 mg twice daily for additional 2 days. Lactobacillus, 2 capsules, once daily until complete. Admission HPI Per Admitting Provider HISTORY OF PRESENT ILLNESS: A 67-year-old female with past medical history significant for prediabetes, hypertension, restless legs syndrome, generalized anxiety disorder, history of obesity, who presents with severe abdominal pain starting last Friday. It is in the center of the abdomen initially radiating to flank then now radiating to back, it is 7-8/10 in severity. Also, some nausea. She had a low-grade fever on and Friday and she had episode of vomiting on , but right now she has lot of nausea and not eating much food because of nausea for the last few days and did not move her bowel since her symptom started. Normal bladder movements. No chest pain, no shortness of breath, no cough, no headache, no blurred visions. Lightheaded because not eating. No earache, no runny nose, no sore throat. Currently, resting comfortably and hemodynamically stable. Admission Exam Per Admitting Provider PHYSICAL EXAMINATION: GENERAL: The patient is of moderate build, not in acute distress. VITAL SIGNS: Temperature 36.8, pulse 110, respiratory rate 18, blood pressure 126/87, oxygen 97% on room air. HEENT: Pupils equal, round and reactive to light. Oral mucosa moist. NECK: No JVD, no neck masses. CARDIOVASCULAR: S1 and S2 heard. Regular rate and rhythm. No murmur, no gallop. RESPIRATORY SYSTEM: Normal AP diameter. No accessory muscle use. No wheezing, no crackles. ABDOMEN: Soft, bowel sounds present. Mild tenderness in the epigastric region. No guarding, no rigidity, no distention. CENTRAL NERVOUS SYSTEM: Cranial nerves II-XII grossly intact, nonfocal. EXTREMITIES: No edema, no erythema. Principal Dx & Hospital Course #1 = Principal Diagnosis (1) Abdominal pain: (2) Acute pancreatitis: (3) Leukocytosis: Plan This is a 67-year-old female who has significant past medical history of hypertension & hyperlipidemia who presented to ED on 03/08/2023 secondary to epigastric abdominal pain. Her initial lipase was mildly elevated and CT a bdomen pelvis was consistent with acute pancreatitis and mildly dilated pancreatic duct. Her initial LFTs were normal except mild elevated total bilirubin at 1.2. She denies any significant alcohol use. There is no evidence of gallbladder pathology. Her symptoms were treated conservatively with IV fluids and bowel rest. Her symptoms resolved after having significant bowel movements. She is tolerating regular diet at discharge. On day of discharge her LFTs were mildly elevated with AST 61, ALT 101 and alk phos 162. She is abdominal pain-free, continuing to move her bowels and is requesting probiotics while on antibiotics. She was seen and evaluated by gastroenterology on day of discharge who is recommending outpatient EUS for further evaluation. Her lipid panel was unremarkable with triglyceride 98, total cholesterol 142, LDL 85 and HDL 37. Her stool study was negative for infectious organism. Initial urinalysis concerning for infection, culture was negative. She will complete course of cefdinir at discharge. She is in good spirits and hemodynamically stable. She will be discharged with close outpatient follow-up. Discharge Exam Gen: WD/WN, female, NAD, A&O x3 HEENT: Normocephalic, atraumatic, conjunctivae moist, sclerae anicteric, mucous membranes moist. Lung: Clear to Auscultation bilaterally, no wheezes/rales/rhonchi Heart: Regular rate, regular rhythm, no murmurs, rubs, or gallops Abdomen: Soft, NT, ND +BS x 4 Extremities: No edema Skin: Warm, no rash, negative turgor. Updated Medication List Medication Instructions Recorded Confirmed Type B 12 Complex 1 tab PO QPM 03/08/23 03/08/23 History Vitamin K 3 1 tab PO QPM 03/08/23 03/08/23 History amlodipine 5 mg tablet 5 mg PO QAM 03/08/23 03/08/23 History atorvastatin 20 mg tablet 20 mg PO QAM 03/08/23 03/08/23 History calcium carbonate 600 mg-vitamin 1 tab PO QPM 03/08/23 03/08/23 History D3 10 mcg (400 unit) tablet (Calcium 600 + D(3)) cholecalciferol (vitamin D3) 25 0 mcg PO QPM 03/08/23 03/08/23 History mcg (1,000 unit) capsule (Vitamin D3) coQ10 (ubiquinol) 200 mg capsule 200 mg PO QPM 03/08/23 03/08/23 History ferrous sulfate 325 mg (65 mg 325 mg PO 3XWK 03/08/23 03/08/23 History iron) tablet (iron) lisinopril 40 mg tablet 40 mg PO DAILY 03/08/23 03/08/23 History L.acidop,casei,lactis,rham-B.lact,leann 2 cap PO DAILY #14 caps 03/10/23 Rx 625 mg (10 billion cell) capsule (Advanced Probiotic) cefdinir 300 mg capsule 300 mg PO BID 2 days #4 [facility] 03/10/23 Rx Hospital Stay Data Consultations 03/09/23 08:00 Consult Gastroenterology Routine Diagnostic Imagining Performed Abdomen/Pelvis CT 03/08/23 17:31 CT SCAN OF THE ABDOMEN AND PELVIS WITH IV CONTRAST CLINICAL HISTORY: Right upper quadrant abdominal pain. COMPARISON STUDY: No priors. TECHNIQUE: Following the IV administration of 81 cc of Optiray 350, CT scan of the abdomen and pelvis is performed from the lung bases to the proximal femora. Images are reviewed in the axial, sagittal, and coronal planes. IV contrast was administered without complication. A dose lowering technique was utilized adhering to the principles of ALARA. CT DOSE: 622.73 mGy.cm FINDINGS: Lung bases: The heart is normal in size and without pericardial effusion. The lung bases are clear. Liver: The contrast-enhanced liver is top normal in size. The liver demonstrates diffusely diminished attenuation indicating steatosis. Fatty sparing is seen adjacent to the gallbladder fossa. There is no intrahepatic biliary ductal dilatation. The hepatic veins and portal veins are patent. Gallbladder: Unremarkable. Spleen: Normal in size and attenuation. Pancreas: The pancreas is enlarged and edematous. There is peripancreatic inflammation and fluid consistent with acute pancreatitis. The gland enhances throughout. No organized peripancreatic fluid collection is identified. The distal pancreatic duct is mildly dilated measuring up to 6 mm. The splenic vein is patent. Adrenal glands: Unremarkable. Kidneys: The contrast enhanced kidneys are normal in size and without hydronephr osis. The kidneys enhance symmetrically. Abdominal vasculature: The abdominal aorta is normal in course and caliber noting moderate atherosclerotic calcification. Bowel: There is moderate colonic diverticulosis without CT evidence of acute diverticulitis. No bowel obstruction is seen. Residual enteric contrast is seen in the right colon. The appendix is well-visualized and normal. Peritoneum: There is no intraperitoneal free air or abdominal ascites. There is a fat-containing umbilical hernia. Lymphadenopathy: None. Pelvic viscera: The bladder, uterus, and adnexa are normal as visualized. Skeletal structures: The skeletal structures are osteopenic. No lytic or blastic lesions are seen. There is mild to moderate lumbosacral spondylosis. Sclerotic change is noted in the pubic symphysis. IMPRESSION: 1. Findings are consistent with acute pancreatitis. Correlate with clinical and laboratory findings. 2. The gland enhances throughout. No organized peripancreatic fluid collection is seen. 3. The distal pancreatic duct is dilated measuring up to 6 mm. This is of indeterminate in appearance. Follow-up with a dedicated pancreas protocol CT or MRI in several weeks' time (following resolution of acute pancreatitis) is recommended to reassess the underlying pancreatic parenchyma and exclude underlying mass lesion. 4. Hepatic steatosis. 5. Colonic diverticulosis without CT evidence of acute diverticulitis. 6. Additional findings as above. ACT 112: Negative or not required by law. Electronically signed by: Albino Mccormack M.D. 03/08/2023 8:33 PM Pending Results Patient Have Any Pending Studies at Discharge: No Discharge Instructions Given to Patient (Per Discharging Provider) MEDICATION CHANGES: Continue cefdinir 300 mg twice daily for additional 2 days. Lactobacillus, 2 capsules, once daily until complete. Continue all other home medications. SUMMARY OF TEST RESULTS: You were admitted for acute pancreatitis. You were treated with bowel rest and IV fluids. Your symptoms resolved and diet was gradually increased. Initial urinalysis concerning for infection and therefore you are completing a course of antibiotics. You were seen and evaluated by gastroenterology and is recommended you follow-up with them as outpatient for further imaging. Your liver functions were mildly elevated, will recommend you have this repeated at your Primary Care Follow up appointment. PENDING TEST RESULTS: None RECOMMENDATIONS FOR FOLLOW-UP: Follow-up with primary care provider as scheduled. Recommend repeating liver functions at follow-up visit with primary care provider. Follow-up with gastroenterology as scheduled for outpatient endoscopy study. Complete antibiotics and probiotics in entirety. Recommend limiting Tylenol usage to less than 2,000mg a day. OTHER INSTRUCTIONS: Seek medical attention if you have: * temperature above 101 * chest pain or trouble breathing * abdominal pain, nausea, vomiting * diarrhea, dark stools or bloody stools * any unanswered questions or concerns Call 911 if symptoms are severe. Please take good care of yourself. It has been a pleasure taking care of you. Please take care of yourself. If you have any questions regarding your recent hospitalization please contact [facility] and request avni [facility] @ [phone]. Total Time Total Time Spent Total Time Spent (In Minutes): 45 minutes Supervising Physician Co-Signing Physician Notes Patient seen and examined independently. Discussed with above provider. Patient reports improvement in abdominal pain. WBC count downtrended to 11. Urine culture showed 3 types of organisms; all moderate count. Empirically treated with cefdinir; continue for 2 more days. Patient to follow-up with PCP and repeat CMP. GI to follow-up with patient and do endoscopic ultrasound as outpatient.
--- NOTE | 2023-03-10 11:08 | Gastrointestinal Consultation ---
Date of Consultation March 10, 2023 Assessment & Plan (1) Acute pancreatitis: Pt is a 67 yo female w symptoms of upper abd pain described as band, squeezing radiating to back, n/v, and loose stools. Stool studies negative for infections though she reports symptoms started after she had [employer] and she suspected she may have food poisoning. CT w contrast showed acute pancreatitis wo initial LFTs elevation, but mild Lipase elevation, and pancreas duct dilation of 6mm. - No contraindication for DC home from GI standpoint. - Low fat diet, avoid ETOH - Will arrange OP EUS eval in 4 to 6 week's time - GI to sign off; pls recall prn Supervising Physician Co-Signing Physician Notes I have seen, examined this patient, and agree with the findings and above by our mid-level provider KELSI Fatima, with the following additions: Pain resolved, feeling well Can plan on outpt follow up History of Present Illness Reason for Consultation: Pancreatitis Requesting Physician: Dr. Emmanuel Rodriguez Attending Physician: Dr. Manolo Tai History of Present Illness Patient is a 67 years old female with medical history of prediabetes, hypertension, RLS, anxiety disorder, obesity who presented with abdominal pain, nausea vomiting and diarrhea symptoms. Patient reports that she had a [employer] wrap last Friday and started getting diarrhea symptoms. Over the next couple of days she started getting fevers and chills, nausea and vomiting then progressively has upper abdominal pain wrapping like a tight rubber band towards her back. She also noticed looser stools but without any signs of GI bleeding. On evaluation she has leukocytosis, no anemia, initially LFTs are normal, lipase elevated 94. Transaminases were elevated today: AST 61, ALT 101. Stool studies are negative for infections. CT abdomen and pelvis with contrast showed signs of acute pancreatitis, distal pancreatic duct dilated up to 6 mm, indeterminate in appearance. She also has hepatic steatosis. There were colonic diver ticulosis without any diverticulitis. Pt denies new meds or dose changes. Denies tobacco, ETOH, marijuana products. No family hx of GI malignancy or autoimmune diseases, pancreatitis. Allergies Allergy/AdvReac Type Severity Reaction Status Date / Time oak Allergy Severe EYES SWELL Verified 03/08/23 17:49 SHUT & CRACK AT [facility]NERS ANTIBIOTICS Allergy Severe SEE COMMENT Uncoded 03/08/23 17:49 Home Medications Medication Instructions Recorded Confirmed Type B 12 Complex 1 tab PO QPM 03/08/23 03/08/23 History Vitamin K 3 1 tab PO QPM 03/08/23 03/08/23 History amlodipine 5 mg tablet 5 mg PO QAM 03/08/23 03/08/23 History atorvastatin 20 mg tablet 20 mg PO QAM 03/08/23 03/08/23 History calcium carbonate 600 mg-vitamin 1 tab PO QPM 03/08/23 03/08/23 History D3 10 mcg (400 unit) tablet (Calcium 600 + D(3)) cholecalciferol (vitamin D3) 25 0 mcg PO QPM 03/08/23 03/08/23 History mcg (1,000 unit) capsule (Vitamin D3) coQ10 (ubiquinol) 200 mg capsule 200 mg PO QPM 03/08/23 03/08/23 History ferrous sulfate 325 mg (65 mg 325 mg PO 3XWK 03/08/23 03/08/23 History iron) tablet (iron) lisinopril 40 mg tablet 40 mg PO DAILY 03/08/23 03/08/23 History L.acidop,casei,lactis,rham-B.lact,leann 2 cap PO DAILY #14 caps 03/10/23 Rx 625 mg (10 billion cell) capsule (Advanced Probiotic) cefdinir 300 mg capsule 300 mg PO BID 2 days #4 caps 03/10/23 Rx Patient History Social History Smoking Status: Former smoker Cigarettes Per Day: 1 pk/week; Smoking End Date: 2009; Hx Alcohol Use: No Hx Substance Use: No Preferred Language: Japanese Communication Ability: Effective Medical Lab Scientist Required: No Beliefs That Will Affect Care: None Current Living Situation: Spouse Current Living Situation Comment: Lives at home with , 2 dogs, and many cats Other Information That Helps Us Care for You: No Feels Safe at Home: Yes Safety Concerns: Feels Safe At This Time Assistive Devices: Denture - Upper and Glasses Assistive Devices Comment: partial upper dentures Review of Systems Review of Systems: All systems reviewed & are unremarkable except as noted in HPI & below Physical Exam Constitutional: WD/WN, vitals as above well groomed, cooperative and comfortable Eyes: PERRL, conjunctivae normal, anicteric sclerae ENMT: external ear and nose normal, oropharynx normal Respiratory: normal respiratory effort, lungs clear to auscultation Cardiovascular: RRR, no murmur, no edema Gastrointestinal (Abdomen): normal bowel sounds, soft, nontender, no hepatosplenomegaly Skin: no rashes, warm and dry no jaundice Psychiatric: A+Ox3, euthymic affect Lymphatic: no lymphedema Results & Data Vital Signs (Past 12 Hours) Vital Signs Temp Pulse Resp BP Pulse Ox O2 Del Method 03/10/23 10:26 36.7 C 72 16 145/82 H 98 03/10/23 08:00 Room Air 03/10/23 07:43 36.7 C 72 16 145/82 H 98 Room Air
== END 2023-03-10 13:26 | disposition home or self-care (01) | DRG 440 ==
LOC: ED 16:31 → 3N 21:58
DX: Z87.891 Personal history of nicotine dependence; K85.90 Acute pancreatitis without necrosis or infection, unspecified; E66.9 Obesity, unspecified; K57.90 Diverticulosis of intestine, part unspecified, without perforation or abscess without bleeding; I10 Essential (primary) hypertension; Z88.1 Allergy status to other antibiotic agents; F41.9 Anxiety disorder, unspecified; R73.03 Prediabetes; Z68.26 Body mass index [BMI] 26.0-26.9, adult; Z88.2 Allergy status to sulfonamides; G25.81 Restless legs syndrome; E78.5 Hyperlipidemia, unspecified

== ENCOUNTER 2023-04-25 08:40 | Inpatient (IN) ==
[2023-04-25] MEDS ORDERED: ONDANSETRON INJ 2 MG/ML 2 ML VIAL IV STA (08:50)
[2023-04-25] MEDS ORDERED: SODIUM CHLORIDE 0.9% 1000ML 500 ML IV ONE (08:50)
--- NOTE | 2023-04-25 08:57 | Emergency Department Note ---
Impression & Plan Abdominal pain, acute, epigastric ED Provider Note INFORMANT: Patient ED PROVIDER(S): Jeet Apple MD CHIEF COMPLAINT: Abdominal pain PLAN: Disposition: Admitted Condition: Good Outpatient prescription management: none Referral: None MEDICAL DECISION MAKING: Patient presented to the emergency room because of acute onset of abdominal pain. She noted this felt worse than her prior episode of pancreatitis which she was admitted. The patient had an IV established. She was started on normal saline at 200 mL an hour. She was given a bolus of 500 mL. The patient was treated with Dilaudid and Zofran for symptom control. ECG did not show acute ischemic change but did have poor R wave progression. Patient had laboratory testing and imaging ordered. Patient was found to have an elevated lipase consistent with pancreatitis. She has had a mild leukocytosis. Her CT scan shows findings consistent with pancreatitis and the mass in the pancreas. Consultation was made with the [facility]. Case was discussed and diagnostics were reviewed. The patient was evaluated in the ER and admitted for further management. Discussed with circulation manager. After review of the information above and other included data, I feel the patient requires admission. Triage Nursing notes reviewed and agree them. Vital Signs: reviewed and remarkable for no significant abnormalities Prior /Outside records reviewed: Prior hospitalization record reviewed Differential diagnosis: Pancreatitis, complication of pancreatic mass, Renal colic, UTI, appendicitis, diverticulitis, mesenteric ischemia, aortic pathology, infections, inflammatory bowel disease, PUD, biliary pathology, as well as other pathologies. Diagnostics, as interpreted by me: ECG: Lead ECG reveals normal sinus rhythm at 62 bpm. Low voltage QRS. Inferior Q waves. Poor R wave progression. No ST elevation or T WI. Cardiac Monitoring: Cardiac monitoring ordered by me: The patient was placed on continuous cardiac monitoring and observed. It revealed a normal sinus rhythm at 69 beats per minute without ectopy or evidence of dysrhythmia. Medical decision rules: none Imaging studies: CT scan reveals findings consistent with pancreatitis. I refer you to the EMR for further details. HPI: The patient is a 68 year old female who presents to the Emergency Room with complaints of cute onset of epigastric abdominal pain. This started this morning and is rated as severe. Patient was recently admitted and diagnosed with acute pancreatitis and found to have a pancreatic mass that was concerning for a carcinoma. She states it is stage I. She was scheduled to see [facility] surgical oncology today at 11 AM. The patient also notes the following associated symptoms, nausea and vomiting. The patient has found no relieving factors. Current pain is rated as 8/10. Patient states this feels similar to last episode of pancreatitis but much worse. Pt denies LOC, headache, fevers, chills, diaphoresis, visual changes, neck pain, chest pain, breathing difficulties, back pain, melena, hematochezia, urinary symptoms, numbness, weakness, lymphadenopathy, rash, or other complaints. PAST MEDICAL HISTORY: See Below, pancreatitis PAST SURGICAL HISTORY: See Below, SOCIAL HISTORY: See Below, non-smoker HOME MEDICATIONS: See Below ALLERGIES: See Below VITALS: See Below PHYSICAL EXAMINATION: GENERAL: Awake, alert, uncomfortable-appearing, in no distress HENT: Normocephalic, atraumatic. Oropharynx unremarkable. EYES: Normal conjunctiva. Sclera non-icteric. NECK: Inspection normal. Non-tender. Supple. No nuchal rigidity. FROM. No masses. RESPIRATORY: Clear to auscultation. No wheezes. No rales. Normal respiratory e ffort. CARDIAC: Normal rate. Normal rhythm. No murmurs. No rubs. Extremities warm and well perfused. Pulses equal. No JVD. GI: Soft, non-distended. Epigastric tenderness to palpation. No rebound or guarding. No masses. RECTAL: Deferred. MUSCULOSKELETAL: Atraumatic. Chest examination reveals no tenderness. The back is symmetrical on inspection without obvious abnormality. There is right CVA ten derness to palpation. No joint edema. LOWER EXTREMITIES: Calves are equal size bilaterally and non-tender. No edema. No discoloration. NEURO: Normal sensorium. No sensory or motor deficits noted. SKIN: No rash or jaundice noted. Past Med/Surg History Medical History (Updated 04/25/23 @ 11:06 by Cheyenne Mckenzie PA-C) Abdominal pain Acute pancreatitis HTN (hypertension) Leukocytosis Pancreatic adenocarcinoma Family History (Updated 04/25/23 @ 11:17 by Cheyenne Mckenzie PA-C) Mother Stroke Hypertension Diabetes Alcoholism Father Alcoholism Diabetes Heart disease Social History Smoking Status: Never smoker Cigarettes Per Day: 1 pk/week; Hx Alcohol Use: No Hx Substance Use: No Preferred Language: Croatian Communication Ability: Effective Manager Call Required: No Beliefs That Will Affect Care: None Current Living Situation: Spouse Current Living Situation Comment: Lives at home with , 2 dogs, and many cats Feels Safe at Home: Yes Assistive Devices: None Allergies Allergies Allergy/AdvReac Type Severity Reaction Status Date / Time oak Allergy Severe EYES SWELL Verified 04/25/23 10:31 SHUT & CRACK AT [facility] ANTIBIOTICS Allergy Severe SEE COMMENT Uncoded 04/25/23 10:31 Home Meds Home Medications Medication Instructions Recorded Confirmed amlodipine 5 mg tablet 5 mg PO QAM 03/08/23 04/25/23 atorvastatin 20 mg tablet 20 mg PO QAM 03/08/23 04/25/23 calcium carbonate 600 mg-vitamin 1 tab PO QPM 03/08/23 04/25/23 D3 10 mcg (400 unit) tablet (Calcium 600 + D(3)) cholecalciferol (vitamin D3) 25 1,000 mcg PO QPM 03/08/23 04/25/23 mcg (1,000 unit) capsule (Vitamin D3) coQ10 (ubiquinol) 200 mg capsule 200 mg PO QPM 03/08/23 04/25/23 ferrous sulfate 325 mg (65 mg 325 mg PO 3XWK 03/08/23 04/25/23 iron) tablet (iron) lisinopril 40 mg tablet 40 mg PO DAILY 03/08/23 04/25/23 vitamin B complex 1 tab PO QPM ##0 03/08/23 04/25/23 vitamin K2 (MK-4) 100 mcg tablet 100 mcg PO QPM ##0 03/08/23 04/25/23 multivitamin 1 tab PO QAM 04/25/23 04/25/23 Previous Rx's Medication Instructions Recorded L.acidop,casei,lactis,rham-B.lact,leann 2 cap PO DAILY #14 caps 03/10/23 625 mg (10 billion cell) capsule (Advanced Probiotic) Results & Data (ED) Vital Signs Vital Signs - 24 hr 04/25/23 08:48 04/25/23 08:52 04/25/23 09:12 Temperature 36.4 C L Temperature Source Oral Pulse Rate 68 69 60 Pulse Rate from SpO2 Sensor Respiratory Rate 20 Blood Pressure 154/107 H Blood Pressure Mean 122 Pulse Oximetry 100 98 Oxygen Delivery Method Room Air Sepsis Recent Fever Within 48 Hours No Sepsis New/Unexplained Change in Mental Status No Sepsis Action Taken by Nursing No Action Required 04/25/23 08:51 04/25/23 09:00 04/25/23 09:01 Temperature Temperature Source Pulse Rate 67 60 58 L Pulse Rate from SpO2 Sensor 68 60 62 Respiratory Rate 20 22 17 Blood Pressure Blood Pressure Mean Pulse Oximetry 99 100 99 Oxygen Delivery Method Sepsis Recent Fever Within 48 Hours Sepsis New/Unexplained Change in Mental Status Sepsis Action Taken by Nursing 04/25/23 09:01 04/25/23 09:30 04/25/23 09:30 Temperature Temperature Source Pulse Rate 68 Pulse Rate from SpO2 Sensor 68 Respiratory Rate 19 Blood Pressure 155/72 H 143/73 H Blood Pressure Mean 92 117 Pulse Oximetry 93 Oxygen Delivery Method Sepsis Recent Fever Within 48 Hours Sepsis New/Unexplained Change in Mental Status Sepsis Action Taken by Nursing 04/25/23 10:00 04/25/23 10:24 04/25/23 10:24 Temperature Temperature Source Pulse Rate 81 83 Pulse Rate from SpO2 Sensor 79 84 Respiratory Rate 20 13 Blood Pressure 157/92 H Blood Pressure Mean 101 Pulse Oximetry 98 97 Oxygen Delivery Method Sepsis Recent Fever Within 48 Hours Sepsis New/Unexplained Change in Mental Status Sepsis Action Taken by Nursing 04/25/23 10:30 Temperature Temperature Source Pulse Rate 85 Pulse Rate from SpO2 Sensor 87 Respiratory Rate 18 Blood Pressure Blood Pressure Mean Pulse Oximetry 97 Oxygen Delivery Method Sepsis Recent Fever Within 48 Hours Sepsis New/Unexplained Change in Mental Status Sepsis Action Taken by Nursing Laboratory Data 04/25/23 08:50 04/25/23 08:50 Lab Results 04/25/23 04/25/23 04/25/23 Range/Units 08:50 08:50 09:00 WBC 18.02 H (4.8-10.8) K/ul RBC 4.94 (4.20-5.40) M/uL Hgb 14.3 (12.0-16.0) g/dl Hct 43.0 (37.0-47.0) % MCV 87.0 (80.0-100.0) fL MCH 28.9 (25.0-34.0) pg MCHC 33.3 (32.0-36.0) g/dL RDW Std Deviation 44.3 (36.4-46.3) fL RDW Coeff of Ivon 14.0 (11.5-14.5) % Plt Count 292 (130-400) K/uL MPV 11.7 (9.4-12.4) fL Immature Gran % (Auto) 0.4 % Neut % (Auto) 88.3 % Lymph % (Auto) 7.0 % [place] % (Auto) 3.6 % Eos % (Auto) 0.4 % Baso % (Auto) 0.3 % Neut # (Auto) 15.91 H (1.40-6.50) K/uL Lymph # (Auto) 1.26 (1.2-3.4) K/uL [place] # (Auto) 0.64 H (0.11-0.59) K/uL Eos # (Auto) 0.07 (0-0.50) K/uL Baso # (Auto) 0.06 (0-0.2) K/uL Immature Gran # (Auto) 0.08 (0.01-0.20) K/uL Sodium 141 (136-145) mmol/L Potassium 3.8 (3.5-5.1) mmol/L Chloride 111 H (98-107) mmol/L Carbon Dioxide 21 (21-32) mmol/L Anion Gap 9 (3-11) BUN 26 H (6-23) mg/dl Creatinine 0.72 (0.6-1.2) mg/dl Est Cr Clr Drug Dosing 66.5 ml/min Est GFR ( Amer) 99.0 ml/min Est GFR (Non-Af Amer) 85.4 ml/min BUN/Creatinine Ratio 36.1 H (10-20) Glucose 144 H (70-99(Fasting)) mg/dl Calcium 9.6 (8.6-10.3) mg/dl Total Bilirubin 0.7 (0.2-1.0) mg/dl AST 16 (13-39) U/L ALT 15 (7-52) U/L Alkaline Phosphatase 93 (34-104) U/L Troponin I High Sens 3.5 (0-14) pg/ml Total Protein 7.3 (6.0-8.3) gm/dl Albumin 4.1 (3.4-5.0) gm/dl Globulin 3.2 (2.5-4.0) gm/dl Albumin/Globulin Ratio 1.3 (0.9-2) Triglycerides 140 (0-150) mg/dl Lipase 5422 H (11-82) U/L Urine Color Urine Appearance (Clear) Urine pH (4.5-7.5) Ur Specific [place] (1.000-1.030) Urine Protein (Negative) Urine Glucose (UA) (Negative) Urine Ketones (Negative) Urine Blood (Negative) Urine Nitrite (Negative) Urine Bilirubin (Negative) Urine Urobilinogen (Negative) Ur Leukocyte Esterase (Negative) SARS-CoV-2, RNA, NAAT NEGATIVE (NEGATIVE) 04/25/23 Range/Units 10:20 WBC (4.8-10.8) K/ul RBC (4.20-5.40) M/uL Hgb (12.0-16.0) g/dl Hct (37.0-47.0) % MCV (80.0-100.0) fL MCH (25.0-34.0) pg MCHC (32.0-36.0) g/dL RDW Std Deviation (36.4-46.3) fL RDW Coeff of Ivon (11.5-14.5) % Plt Count (130-400) K/uL MPV (9.4-12.4) fL Immature Gran % (Auto) % Neut % (Auto) % Lymph % (Auto) % [place] % (Auto) % Eos % (Auto) % Baso % (Auto) % Neut # (Auto) (1.40-6.50) K/uL Lymph # (Auto) (1.2-3.4) K/uL [place] # (Auto) (0.11-0.59) K/uL Eos # (Auto) (0-0.50) K/uL Baso # (Auto) (0-0.2) K/uL Immature Gran # (Auto) (0.01-0.20) K/uL Sodium (136-145) mmol/L Potassium (3.5-5.1) mmol/L Chloride (98-107) mmol/L Carbon Dioxide (21-32) mmol/L Anion Gap (3-11) BUN (6-23) mg/dl Creatinine (0.6-1.2) mg/dl Est Cr Clr Drug Dosing ml/min Est GFR ( Amer) ml/min Est GFR (Non-Af Amer) ml/min BUN/Creatinine Ratio (10-20) Glucose (70-99(Fasting)) mg/dl Calcium (8.6-10.3) mg/dl Total Bilirubin (0.2-1.0) mg/dl AST (13-39) U/L ALT (7-52) U/L Alkaline Phosphatase (34-104) U/L Troponin I High Sens (0-14) pg/ml Total Protein (6.0-8.3) gm/dl Albumin (3.4-5.0) gm/dl Globulin (2.5-4.0) gm/dl Albumin/Globulin Ratio (0.9-2) Triglycerides (0-150) mg/dl Lipase (11-82) U/L Urine Color Yellow Urine Appearance Clear (Clear) Urine pH 5.5 (4.5-7.5) Ur Specific [place] 1.025 (1.000-1.030) Urine Protein Negative (Negative) Urine Glucose (UA) Negative (Negative) Urine Ketones Negative (Negative) Urine Blood Negative (Negative) Urine Nitrite Negative (Negative) Urine Bilirubin Negative (Negative) Urine Urobilinogen Negative (Negative) Ur Leukocyte Esterase Negative (Negative) SARS-CoV-2, RNA, NAAT (NEGATIVE) Administered Medications Acetaminophen (Acetaminophen 500 Mg Tab) 1,[address] [facility] Stop: 05/25/23 14:28 Last Admin: 04/25/23 15:24 Dose: 1,000 mg Documented By: JENNY Amlodipine Besylate (Amlodipine Besylate 5 Mg Tab) [address] [facility] Stop: 05/25/23 14:28 Last Admin: 04/25/23 15:24 Dose: 5 mg Documented By: JENNY Ferrous Sulfate (Ferrous Sulfate 325 Mg Tab) [address] [facility] Stop: 05/25/23 14:39 Last Admin: 04/25/23 15:25 Dose: 325 mg Documented By: JENNY Hydromorphone HCl (Hydromorphone Inj 0.5 Mg/0.5 Ml Syr) 0.5 mg IV Q3H PRN PRN Reason: Pain, moderate Stop: 05/09/23 14:28 Last Admin: 04/25/23 16:39 Dose: 0.5 mg Documented By: JENNY Sodium Chloride (Nss 1000ml) 1,000 mls @ 150 mls/hr IV .Q6H40M [facility]ALIS Stop: 05/25/23 14:28 Last Admin: 04/25/23 15:26 Dose: 150 mls/hr Documented By: JENNY Lisinopril (Lisinopril 40 Mg Tab) 40 mg PO DAILY [facility] Stop: 05/25/23 14:28 Last Admin: 04/25/23 15:24 Dose: 40 mg Documented By: JENNY Multivitamins (Multivitamin Tab) 1 tab PO QAM [facility] Stop: 05/25/23 14:59 Last Admin: 04/25/23 15:25 Dose: 1 tab Documented By: JENNY Discontinued Medications Hydromorphone HCl (Hydromorphone Inj 0.5 Mg/0.5 Ml Syr) 0.5 mg IV Q15M PRN PRN Reason: Pain Stop: 05/09/23 08:49 Last Admin: 04/25/23 13:55 Dose: 0.5 mg Documented By: Admin: 04/25/23 12:36 Dose: 0.5 mg Documented By: Admin: 04/25/23 11:58 Dose: 0.5 mg Documented By: Admin: 04/25/23 10:30 Dose: 0.5 mg Documented By: Admin: 04/25/23 09:01 Dose: 0.5 mg Documented By: GLENYS Sodium Chloride (Nss 1000ml) 1,000 mls @ 200 mls/hr IV .Q5H ODALIS Stop: 05/25/23 08:59 Last Admin: 04/25/23 13:11 Dose: 200 mls/hr Documented By: Infusion: 04/25/23 13:10 Dose: 0 mls/hr Documented By: Admin: 04/25/23 09:01 Dose: 200 mls/hr Documented By: GLENYS Sodium Chloride (Nss 1000ml) 500 mls @ 999 mls/hr IV .Q31M ONE Stop: 04/25/23 09:20 Last Infusion: 04/25/23 13:02 Dose: 0 mls/hr Documented By: Admin: 04/25/23 09:01 Dose: 999 mls/hr Documented By: GLENYS Ioversol (Optiray 320 100ml) 87 ml IV ONCE ONE Stop: 04/25/23 10:04 Last Admin: 04/25/23 10:03 Dose: 87 ml Documented By: TEMO Metoclopramide HCl (Metoclopramide Hcl Inj 5 Mg/Ml 2 Ml Vial) 5 mg IV ONE ONE Stop: 04/25/23 15:54 Last Admin: 04/25/23 16:35 Dose: 5 mg Documented By: JENNY Ondansetron HCl (Ondansetron Inj 2 Mg/Ml 2 Ml Vial) 4 mg IV NOW STA Stop: 04/25/23 08:51 Last Admin: 04/25/23 09:01 Dose: 4 mg Documented By: GLENYS Imaging Data Radiologist's Impression: Abdomen/Pelvis CT 04/25/23 08:[address] WITH IV CONTRAST CT DOSE: 1167.67 mGy.cm HISTORY: epigastric pain, vomiting. hx of pancreatitis TECHNIQUE: Multiaxial CT images of the abdomen and pelvis were performed following the use of intravenous contrast. A dose lowering technique was utilized adhering to the principles of ALARA. COMPARISON STUDY: Abdomen and pelvis CT 03/08/2023 FINDINGS: Small patchy densities noted at the base of the left lower lobe. No pneumoperitoneum. No pneumatosis. No suspicious lytic or blastic osseous lesions. Mild hepatic steatosis. The hepatic masses. The main portal vein is patent. The spleen, adrenal glands, and kidneys unremarkable. Mild calcified plaque within the normal caliber abdominal aorta. The superior mesenteric artery is patent. No retroperitoneal lymphadenopathy. There is progressive edema/fluid both within and surrounding the head and body of the pancreas consistent with acute pancreatitis. No evidence for pancreatic necrosis at this time. No loculated fluid collections identified. Focal dilatation of the proximal main pancreatic duct within the tail on image 99 which measures up to 5 mm which demonstrates an abrupt cut off. There is suggestion of a subtle heterogeneous lesion within the pancreatic tail at this abrupt cut off at the dilated main pancreatic duct best seen on image 93. This suspected lesion measures 2.1 x 1.8 cm. This abuts and focally narrows the mid splenic vein best seen on image 91. Therefore, this is highly suspicious for a pancreatic adenocarcinoma. The bladder, uterus, bilateral adnexa are unremarkable. No pelvic free fluid. Colonic diverticulosis. No evidence for acute diverticulitis. No bowel wall thic kening or obstruction. Normal appendix. IMPRESSION: 1. Interval progression of the acute pancreatitis with progressive peripancreatic fluid/edema. 2. There is a 2.1 x 1.8 cm subtle lesion within the pancreatic tail. This is located at the abrupt cut off of the dilated main pancreatic duct as well as resulting in focal narrowing of the adjacent mid splenic vein. Therefore, this is highly suspicious for a pancreatic adenocarcinoma. GI consultation recommended. 3. Small patchy densities the base of the left lower lobe. This likely represent dependent change/atelectasis. A low-grade pneumonitis could also a similar appe arance. 4. Hepatic steatosis. 5. Additional findings as described above. ACT 112: Negative or not required by law. Electronically signed by: Anton Camejo M.D. 04/25/2023 10:52 AM Discharge Plan Visit Data Chief Complaint: Abdominal Pain Stated Complaint: abd pain ED Provider: Jeet Apple Discharge Problem: Abdominal pain, acute, epigastric Patient Disposition: Admitted As Inpatient Discharge Instructions Interventions: ED Discharge Assessment Last Done: 04/25/23 14:25
[2023-04-25] MEDS: SODIUM CHLORIDE 0.9% 1000ML 1,000 ML IV SCH ×4 (09:01→19:55)
[2023-04-25] MEDS: HYDROmorphone INJ 0.5 MG/0.5 ML SYR IV PRN ×7 (09:01→19:53)
[2023-04-25 09:32] LABS: Basophils # (auto) 0.06 K/uL (0-0.2); Basophils % (auto) 0.3 %; Eosinophils # (auto) 0.07 K/uL (0-0.50); Eosinophils % (auto) 0.4 %; Hemoglobin 14.3 g/dl (12.0-16.0); Immature Granulocytes # (auto) 0.08 K/uL (0.01-0.20); Immature Granulocytes % (auto) 0.4 %; Lymphocytes # (auto) 1.26 K/uL (1.2-3.4); Mean Corpuscular Hemoglobin 28.9 pg (25.0-34.0); Mean Corpuscular Hgb Conc 33.3 g/dL (32.0-36.0); Mean Platelet Volume 11.7 fL (9.4-12.4); Monocytes # (auto) 0.64 K/uL (0.11-0.59); Monocytes % (auto) 3.6 %; Neutrophils # (auto) 15.91 K/uL (1.40-6.50); Neutrophils % (auto) 88.3 %; Platelet Count 292 K/uL (130-400); RDW Standard Deviation 44.3 fL (36.4-46.3); Red Blood Count 4.94 M/uL (4.20-5.40); White Blood Count 18.02 K/ul (4.8-10.8)
[2023-04-25 09:52] LABS: BUN Creatinine Ratio 36.1 (10-20); Calcium 9.6 mg/dl (8.6-10.3); Creatinine Clr Calc Pharmacy 66.5 ml/min; Est GFR (Non-African American) 85.4 ml/min; Potassium 3.8 mmol/L (3.5-5.1)
[2023-04-25 09:53] LABS: Albumin Globulin Ratio 1.3 (0.9-2); Albumin Level 4.1 gm/dl (3.4-5.0); Bilirubin,Total 0.7 mg/dl (0.2-1.0); Globulin 3.2 gm/dl (2.5-4.0); Total Protein 7.3 gm/dl (6.0-8.3)
[2023-04-25 09:58] LABS: Troponin I High Sensitivity 3.5 pg/ml (0-14)
[2023-04-25] MEDS ORDERED: OPTIRAY 320 100ml IV ONE (10:03)
--- NOTE | 2023-04-25 10:38 | Electrocardiogram Report ---
Test Reason : Blood Pressure : / mmHG Vent. Rate : 062 BPM Atrial Rate : 062 BPM P-R Int : 172 ms QRS Dur : 074 ms QT Int : 414 ms P-R-T Axes : 054 005 026 degrees QTc Int : 420 ms Normal sinus rhythm with sinus arrhythmia Low voltage QRS Minor Nonspecific ST abnormality Anterior leads Abnormal ECG No previous ECGs available Confirmed by Amauri Whiting ([id number]) on 04/25/2023 10:37:08 AM Referred By: REFERRED SELF Confirmed By:Amauri Whiting
[2023-04-25 10:41] LABS: Appearance Urine Clear (Clear); Bilirubin Urine Negative (Negative); Blood Urine Negative (Negative); Color Urine Yellow; Glucose Urine UA Negative (Negative); Ketones Urine Negative (Negative); Leukocyte Esterase Urine Negative (Negative); Nitrite Urine Negative (Negative); Protein Urine Negative (Negative); Specific Gravity Urine 1.025 (1.000-1.030); Urobilinogen Urine Negative (Negative); pH Urine 5.5 (4.5-7.5)
--- NOTE | 2023-04-25 10:51 | History & Physical Report ---
Date of Service April 25, 2023 Assessment & Plan (1) Pancreatic adenocarcinoma: (2) Pancreatitis: (3) Abdominal pain, acute, epigastric: Plan: - Admit to med surg - Recent diagnosis of pancreatic adenocarcinoma diagnosed via EUS on 04/09/23 - pt was scheduled to follow up with surgical oncology at [place] 04/25, today, however due to presentation with nausea, vomiting and abd pain was unable to make it to the appointment and proceeded to the ER - Lipase upon arrival is 5422, WBC is 18 K - trend - CT of the abdomen reviewed showing: CT of abd/pelvis is reviewed showing interval progression of acute pancreatitis with progressive peripancreatic fluid and edema. Again it shows the 2.1 x 1.8 cm subtle lesion within the pancreatic tail. No pancreatic necrosis or loculated fluid collections. Focal dilatation of the proximal main pancreatic duct within the tail. - Allow clear liquid diet - NSS at 150 ml/hrs - Pain control, antiemetics, bowel regimen - Check triglycerides - Pt will need follow up with [place] surgical oncology after this acute hospital stay for further plan and care (4) HTN (hypertension): Plan: - May continue amlodipine and atorvastatin DVT ppx: scds, lovenox subq CODE: Full code Dispo: From home, likely to remain in the hospital for 1-2 days A total of 78 minutes were spent with greater than 50% of that time face to face with the patient, personally reviewing all current laboratories, imaging studies, past medication reconciliation, outpatient chart review, and discussion with specialists to collaborate care for the patient with attending. Please see attending documentation for corrections and/or additions. History of Present Illness Chief Complaint: Abdominal pain, nausea, vomiting Primary Care Provider: Amauri Antony MD This is a 68-year-old female with PMHx of recent diagnosis of pancreatic adenocarcinoma diagnosed via EUS on 04/09/23. Pt reports that she had been doing very well within the past two weeks, and states that the cancer is stage 1, no metastasis and no spread, and thought possible that she was having some anxiety this morning anticipating a surgical oncology consult at [facility] this morning to discuss her plan of care. She woke up at 6am this morning because of feeling a "rock" in her stomach and was uncomfortable, soon afterwards the pain intensified, followed by nausea and vomiting. Pt reports her pain is currently rated a 6/10 and radiates to the back. She denies any fever, chills and sweats. Pt has been tolerating food without difficulty prior to this event. Last BM was this morning and was regular. Pt pain is improved with dilaudid given in the ER. She is asking for something to drink due to feeling very [age]. Pt is present here with her spouse, Benita, who is very supportive. Pt reports her goal is to live until age 89. Pt denies any previous surgical history. Lipase upon arrival is 5422, WBC is 18 K, CT of abd/pelvis is reviewed showing interval progression of acute pancreatitis with progressive peripancreatic fluid and edema. Again it shows the 2.1 x 1.8 cm subtle lesion within the pancreatic tail. No pancreatic necrosis or loculated fluid collections. Focal dilatation of the proximal main pancreatic duct within the tail. Allergies Allergy/AdvReac Type Severity Reaction Status Date / Time oak Allergy Severe EYES SWELL Verified 04/25/23 10:31 SHUT & CRACK AT [employer] [employer] Allergy Severe SEE COMMENT Uncoded 04/25/23 10:31 Home Medications Medication Instructions Recorded Confirmed Type amlodipine 5 mg tablet 5 mg PO QAM 03/08/23 04/25/23 History atorvastatin 20 mg tablet 20 mg PO QAM 03/08/23 04/25/23 History calcium carbonate 600 mg-vitamin 1 tab PO QPM 03/08/23 04/25/23 History D3 10 mcg (400 unit) tablet (Calcium 600 + D(3)) cholecalciferol (vitamin D3) 25 1,000 mcg PO QPM 03/08/23 04/25/23 History mcg (1,000 unit) capsule (Vitamin D3) coQ10 (ubiquinol) 200 mg capsule 200 mg PO QPM 03/08/23 04/25/23 History ferrous sulfate 325 mg (65 mg 325 mg PO 3XWK 03/08/23 04/25/23 History iron) tablet (iron) lisinopril 40 mg tablet 40 mg PO DAILY 03/08/23 04/25/23 History vitamin B complex 1 tab PO QPM ##0 03/08/23 04/25/23 History vitamin K2 (MK-4) 100 mcg tablet 100 mcg PO QPM ##0 03/08/23 04/25/23 History L.acidop,casei,lactis,rham-B.lact,leann 2 cap PO DAILY #14 caps 03/10/23 04/25/23 Rx 625 mg (10 billion cell) capsule (Advanced Probiotic) multivitamin 1 tab PO QAM 04/25/23 04/25/23 History Past Med/Surg History Medical History (Updated 04/25/23 @ 11:06 by Cheyenne Mckenzie PA-C) Abdominal pain Acute pancreatitis HTN (hypertension) Leukocytosis Pancreatic adenocarcinoma Family History (Updated 04/25/23 @ 11:17 by Cheyenne Mckenzie PA-C) Mother Stroke Hypertension Diabetes Alcoholism Father Alcoholism Diabetes Heart disease Social History Smoking Status: Never smoker Cigarettes Per Day: 1 pk/week; Hx Alcohol Use: No Hx Substance Use: No Preferred Language: Estonian Communication Ability: Effective Heat Treater Required: No Beliefs That Will Affect Care: None Current Living Situation: Spouse Current Living Situation Comment: Lives at home with , 2 dogs, and many cats Feels Safe at Home: Yes Assistive Devices: None Review of Systems Review of Systems: Constitutional: No fever, sweats or chills Eyes: No diplopia, no worsening or blurred vision ENT: normal hearing, no trouble swallowing Respiratory: No cough, sputum, dyspnea at rest or on exertion Cardiovascular: No chest pain, tightness or palpitations Abdomen: As per HPI, current pain is improved, +nausea,+ vomiting, no diarrhea or constipation Musculoskeletal: No joint pain, calf pain, swelling Neurologic: No weakness, numbness/tingling, or balance problems Psychiatric: No anxiety or depression Skin: No rash or itch Physical Exam Physical Exam: General: awake, alert, no apparent distress Head: Normocephalic, atraumatic ENT: PERRL, EOMI, no pharyngeal exudate, mucous membranes moist Chest: Clear to auscultation, on room air, no adventitious breath sounds Cardiac: Regular rate and rhythm, no murmur, no JVD, normal peripheral pulses, good capillary refill Abdominal: NABS x 4 quadrants, soft, nondistended, + RUQ tender to palpation, no rebound or guarding Extremities: Normal inspection, no peripheral edema or erythema, calfs nontender to palpation Psych: Normal mood and affect Neuro: AAO x 3, strength intact bilaterally and rated 5/5, no motor deficits, speech is clear, no peripheral sensory deficits Results & Data Results & Data Vital Signs (Past 12 Hours) Vital Signs Temp Pulse Resp BP Pulse Ox O2 Del Method 04/25/23 09:01 155/72 H 04/25/23 09:01 58 L 17 99 04/25/23 09:00 60 22 100 04/25/23 08:51 67 20 99 04/25/23 09:12 60 98 04/25/23 08:52 69 04/25/23 08:48 36.4 C L 68 20 154/107 H 100 Room Air Laboratory Results 04/25/23 04/25/23 04/25/23 10:20 09:00 08:50 WBC RBC Hgb Hct MCV MCH MCHC RDW Std Deviation RDW Coeff of Ivon Plt Count MPV Immature Gran % (Auto) Neut % (Auto) Lymph % (Auto) [place] % (Auto) Eos % (Auto) Baso % (Auto) Neut # (Auto) Lymph # (Auto) [place] # (Auto) Eos # (Auto) Baso # (Auto) Immature Gran # (Auto) Sodium 141 Potassium 3.8 Chloride 111 H Carbon Dioxide 21 Anion Gap 9 BUN 26 H Creatinine 0.72 Est Cr Clr Drug Dosing 66.5 Est GFR ( Amer) 99.0 Est GFR (Non-Af Amer) 85.4 BUN/Creatinine Ratio 36.1 H Glucose 144 H Calcium 9.6 Total Bilirubin 0.7 AST 16 ALT 15 Alkaline Phosphatase 93 Troponin I High Sens 3.5 Total Protein 7.3 Albumin 4.1 Globulin 3.2 Albumin/Globulin Ratio 1.3 Lipase 5422 H Urine Color Yellow Urine Appearance Clear Urine pH 5.5 Ur Specific [place] 1.025 Urine Protein Negative Urine Glucose (UA) Negative Urine Ketones Negative Urine Blood Negative Urine Nitrite Negative Urine Bilirubin Negative Urine Urobilinogen Negative Ur Leukocyte Esterase Negative SARS-CoV-2, RNA, NAAT NEGATIVE 04/25/23 08:50 WBC 18.02 H RBC 4.94 Hgb 14.3 Hct 43.0 MCV 87.0 MCH 28.9 MCHC 33.3 RDW Std Deviation 44.3 RDW Coeff of Ivon 14.0 Plt Count 292 MPV 11.7 Immature Gran % (Auto) 0.4 Neut % (Auto) 88.3 Lymph % (Auto) 7.0 [place] % (Auto) 3.6 Eos % (Auto) 0.4 Baso % (Auto) 0.3 Neut # (Auto) 15.91 H Lymph # (Auto) 1.26 [place] # (Auto) 0.64 H Eos # (Auto) 0.07 Baso # (Auto) 0.06 Immature Gran # (Auto) 0.08 Sodium Potassium Chloride Carbon Dioxide Anion Gap BUN Creatinine Est Cr Clr Drug Dosing Est GFR ( Amer) Est GFR (Non-Af Amer) BUN/Creatinine Ratio Glucose Calcium Total Bilirubin AST ALT Alkaline Phosphatase Troponin I High Sens Total Protein Albumin Globulin Albumin/Globulin Ratio Lipase Urine Color Urine Appearance Urine pH Ur Specific [place] Urine Protein Urine Glucose (UA) Urine Ketones Urine Blood Urine Nitrite Urine Bilirubin Urine Urobilinogen Ur Leukocyte Esterase SARS-CoV-2, RNA, NAAT Diagnostic Findings Abdomen/Pelvis CT 04/25/23 08:[address] WITH IV CONTRAST CT DOSE: 1167.67 mGy.cm HISTORY: epigastric pain, vomiting. hx of pancreatitis TECHNIQUE: Multiaxial CT images of the abdomen and pelvis were performed following the use of intravenous contrast. A dose lowering technique was utilized adhering to the principles of ALARA. COMPARISON STUDY: Abdomen and pelvis CT 03/08/2023 FINDINGS: Small patchy densities noted at the base of the left lower lobe. No pneumoperitoneum. No pneumatosis. No suspicious lytic or blastic osseous lesions. Mild hepatic steatosis. The hepatic masses. The main portal vein is patent. The spleen, adrenal glands, and kidneys unremarkable. Mild calcified plaque within the normal caliber abdominal aorta. The superior mesenteric artery is patent. No retroperitoneal lymphadenopathy. There is progressive edema/fluid both within and surrounding the head and body of the pancreas consistent with acute pancreatitis. No evidence for pancreatic necrosis at this time. No loculat ed fluid collections identified. Focal dilatation of the proximal main pancreatic duct within the tail on image 99 which measures up to 5 mm which demonstrates an abrupt cut off. There is suggestion of a subtle heterogeneous lesion within the pancreatic tail at this abrupt cut off at the dilated main pancreatic duct best seen on image 93. This suspected lesion measures 2.1 x 1.8 cm. This abuts and focally narrows the mid splenic vein best seen on image 91. Therefore, this is highly suspicious for a pancreatic adenocarcinoma. The bladder, uterus, bilateral adnexa are unremarkable. No pelvic free fluid. Colonic diverticulosis. No evidence for acute diverticulitis. No bowel wall thickening or obstruction. Normal appendix. IMPRESSION: 1. Interval progression of the acute pancreatitis with progressive peripancreatic fluid/edema. 2. There is a 2.1 x 1.8 cm subtle lesion within the pancreatic tail. This is located at the abrupt cut off of the dilated main pancreatic duct as well as resulting in focal narrowing of the adjacent mid splenic vein. Therefore, this is highly suspicious for a pancreatic adenocarcinoma. GI consultation recommended. 3. Small patchy densities the base of the left lower lobe. This likely represent dependent change/atelectasis. A low-grade pneumonitis could also a similar appearance. 4. Hepatic steatosis. 5. Additional findings as described above. ACT 112: Negative or not required by law. Electronically signed by: Anton Camejo M.D. 04/25/2023 10:52 AM Code Status & VTE Plan VTE Prophylaxis Plan VTE Prophylaxis will be ordered: Yes Supervising Physician Co-Signing Physician Notes Patient seen and examined independently. Discussed with above provider. Patient is 68-year-old female with recent diagnosis of pancreatic adenocarcinoma diagnosed on EUS on April 09, 2023. Her prior admission was in February due to acute pancreatitis. No clear etiology was known at that time for her acute pancreatitis. She presents to the hospital with acute onset of epigastric pain radiating to the back. Lipase elevated. CT abdomen pelvis reviewed; consistent with pancreatic cancer. Also found to have 2.1 X1.8 cm lesion within pancreatic tail. On physical exam; Constitutional: WD/WN, vitals as above, NAD, sitting up in bed, pleasant, conversing easily Respiratory: normal respiratory effort, lungs clear to auscultation, no wheeze, rales, rhonchi. Normal insp/exp effort, no accessory muscle use Cardiovascular: RRR, no murmur, no edema Vessels: no JVD or carotid bruit Chest: normal inspection of chest Abdomen: Soft, tenderness on deep palpation on epigastric and right upper quadrant region. Bowel sounds present. Musculoskeletal: no cyanosis or clubbing, extremities motor strength 5/5 Skin: no rashes, warm and dry normal turgor Neurologic: PERRL, EOMI, accommodation nl, no face palsy, no dysarthria CN's II- XI intact bilaterally and moves all extremities Psychiatric: A+Ox3, euthymic affect Assessment/plan Acute pancreatitis secondary to pancreatic adenocarcinomaIV fluid with LR at 150 cc/h, scheduled Tylenol, Dilaudid for breakthrough pain, clear liquid diet. GI consult Hypertensioncontinue lisinopril and amlodipine Hyperlipidemiacontinue on Lipitor
--- NOTE | 2023-04-25 10:54 | CT Scan Report ---
ABDOMEN AND PELVIS CT WITH IV CONTRAST CT DOSE: 1167.67 mGy.cm HISTORY: epigastric pain, vomiting. hx of pancreatitis TECHNIQUE: Multiaxial CT images of the abdomen and pelvis were performed following the use of intrave nous contrast. A dose lowering technique was utilized adhering to the principles of ALARA. COMPARISON STUDY: Abdomen and pelvis CT 03/08/2023 FINDINGS: Small patchy densities noted at the base of the left lower lobe. No pneumoperitoneum. No pn eumatosis. No suspicious lytic or blastic osseous lesions. Mild hepatic steatosis. The hepatic masses . The main portal vein is patent. The spleen, adrenal glands, and kidneys unremarkable. Mild calcifie d plaque within the normal caliber abdominal aorta. The superior mesenteric artery is patent. No retr operitoneal lymphadenopathy. There is progressive edema/fluid both within and surrounding the head an d body of the pancreas consistent with acute pancreatitis. No evidence for pancreatic necrosis at thi s time. No loculated fluid collections identified. Focal dilatation of the proximal main pancreatic d uct within the tail on image 99 which measures up to 5 mm which demonstrates an abrupt cut off. There is suggestion of a subtle heterogeneous lesion within the pancreatic tail at this abrupt cut off at the dilated main pancreatic duct best seen on image 93. This suspected lesion measures 2.1 x 1.8 cm. This abuts and focally narrows the mid splenic vein best seen on image 91. Therefore, this is highly suspicious for a pancreatic adenocarcinoma. The bladder, uterus, bilateral adnexa are unremarkable. N o pelvic free fluid. Colonic diverticulosis. No evidence for acute diverticulitis. No bowel wall thic kening or obstruction. Normal appendix. IMPRESSION: 1. Interval progression of the acute pancreatitis with progressive peripancreatic fluid/edema. 2. There is a 2.1 x 1.8 cm subtle lesion within the pancreatic tail. This is located at the abrupt cu t off of the dilated main pancreatic duct as well as resulting in focal narrowing of the adjacent mid splenic vein. Therefore, this is highly suspicious for a pancreatic adenocarcinoma. GI consultation recommended. 3. Small patchy densities the base of the left lower lobe. This likely represent dependent change/ate lectasis. A low-grade pneumonitis could also a similar appearance. 4. Hepatic steatosis. 5. Additional findings as described above. ACT 112: Negative or not required by law. Electronically signed by: Anton Camejo M.D. 04/25/2023 10:52 AM
[2023-04-25] MEDS ORDERED: ONDANSETRON INJ 2 MG/ML 2 ML VIAL IV PRN (14:29)
--- NOTE | 2023-04-25 14:47 | Gastrointestinal Consultation ---
Date of Consultation April 25, 2023 Assessment & Plan (1) Pancreatitis: (2) Pancreatic adenocarcinoma: Plan 68 y/o female with recently dx'd pancreatic adenocarcinoma, admitted with n/v/abd pain, work-up consistent with progression of pancreatic inflammation, with evidence of dilated PD and significantly elevated lipase. No apparent necrosis or significant fluid collection on CT. On exam she is moderately TTP in the epigastrium. Having nausea and clear emesis - Continue IVF hydration- has had about 1.5 L so far; rate at 150 mL/hr. Aim for 2 pt drop in H/H - Monitor UOP, GI output - Supportive care with analgesia PRN - Antiemetics PRN - Give dose of Reglan 5 mg IV now - When able to tolerate PO, would start with clears -> advance to low fat diet as tolerated - Case discussed with surgeon in [place] Dr. Samuels and with hospital and GI attending - Plan from a surgical perspective is f/u phone call on Friday, then tentative surgery on 05/21 Thank you for allowing us to participate in the care of this patient. Please call with any acute changes, questions or concerns. Please see addendum below with additional recommendation from my supervising physician. Supervising Physician Co-Signing Physician Notes Attg add: I interviewed and examined pt, reviewed chart and labs. Pt with pancreatitis secondary to panc ca, admit with abrupt recurrence of abd pain, n, v. Labs notable for increased lipase, elevated LFTs, and evidence of mild hemoconcentration. CT shows pancretitis. Recommendations as above. History of Present Illness Reason for Consultation: Pancreatic adenocarcinoma, pancreatitis Requesting Physician: Cass Mckenzie PA-C Attending Physician: Emmanuel Rodriguez MD History of Present Illness This is a 68 y/o female with pancreatitis, ended up being recently dx'd pancreatic adenocarcinoma (no apparent mets on recent CT chest/A/P), who presented with abd pain radiating to the back, n/v. Pain started abruptly this AM and radiated to the back. Assoc w/ n/v. Feels like a "rock in her stomach." Upon arrival WBC 18, lipase > 5,400, LFTS and renal fxn WNL. CTAP w/ interval progression of the acute pancreatitis with progressive peripancreatic fluid/edema, 2 x 1.8 cm lesion in the panc tail. Was given IVF, analgesia, antiemetics. . Presently pain improved somewhat with analgesia. Still having some nausea. Is trying a clear liquid diet. Upon our exam had some clear emesis. No BMs but passing flatus. No fever, jaundice, CP, SOB, hematemesis, melena. hematochezia. Pt states she's had good UOP; urine is clear/pale. No dark urne or acosta stools. After her initial bout of pancreatitis in February, pt had been doing well w/o pain, n/v. Plan was to meet w/ surgical oncology today but she presented here instead. EUS 04/09/23: - There was no sign of significant pathology in the ampulla. - There was no sign of significant pathology in the common bile duct. - There was no sign of significant pathology in the gallbladder. - There was no evidence of significant pathology in the visualized portion of the liver. - Endosonographic images of the left adrenal gland were unremarkable. - There was no sign of significant pathology in the neil creatic head and pancreatic neck. - A 17 mm mass was identified in the pancreatic body. This was staged T1 N0 M0 by endosonographic criteria. The staging applies if malignancy is confirmed. Fine needle aspiration performed. Final Diagnosis A. Pancreas, EUS guided Fine Needle Aspiration: Adequacy: Satisfactory for evaluation. Category: Malignant. Interpretation: Epithelial cells with high-grade atypia, most compatible with adenocarcinoma (see comment). Comment: The direct smears demonstrate disorganized epithelial cells with irregular nuclear contours, nuclear pleomorphism, inconspicuous nucleoli, and vacuolated/foamy type cytoplasm within a background of benign ductal cells, pancreatic acinar tissue with desmoplastic tissue fragments. The cell block demonstrates similar morphologic findings. Immunostains performed on the A1 cell block show the tumor cells are positive for CK7, [place], S100P, CK20 (rare focal), and show loss of expression of SMAD4. There is also increased p53 expression. The ki-67 proliferation index is increased in the tumor cell clusters. There is limited clinical and radiological information; however, if the mass is solid, then the morphologic and immunostain profile is consistent with an adenocarcinoma showing mucinous/foamy features, compatible with a pancreatic origin. There is insufficient tissue remaining in the cell block for molecular studies. Clinical and radiological correlation is essential to exclude a cystic lesion. EGD 04/09/23: - Normal esophagus. - Z-line regular, 38 cm from the incisors. - Normal stomach. - Normal examined duodenum. Biopsied. Allergies Allergy/AdvReac Type Severity Reaction Status Date / Time oak Allergy Severe EYES SWELL Verified 04/25/23 10:31 SHUT & CRACK AT [facility] ANTIBIOTICS Allergy Severe SEE COMMENT Uncoded 04/25/23 10:31 Home Medications Medication Instructions Recorded Confirmed Type amlodipine 5 mg tablet 5 mg PO QAM 03/08/23 04/25/23 History atorvastatin 20 mg tablet 20 mg PO QAM 03/08/23 04/25/23 History calcium carbonate 600 mg-vitamin 1 tab PO QPM 03/08/23 04/25/23 History D3 10 mcg (400 unit) tablet (Calcium 600 + D(3)) cholecalciferol (vitamin D3) 25 1,000 mcg PO QPM 03/08/23 04/25/23 History mcg (1,000 unit) capsule (Vitamin D3) coQ10 (ubiquinol) 200 mg capsule 200 mg PO QPM 03/08/23 04/25/23 History ferrous sulfate 325 mg (65 mg 325 mg PO 3XWK 03/08/23 04/25/23 History iron) tablet (iron) lisinopril 40 mg tablet 40 mg PO DAILY 03/08/23 04/25/23 History vitamin B complex 1 tab PO QPM ##0 03/08/23 04/25/23 History vitamin K2 (MK-4) 100 mcg tablet 100 mcg PO QPM ##0 03/08/23 04/25/23 History L.acidop,casei,lactis,rham-B.lact,leann 2 cap PO DAILY #14 caps 03/10/23 04/25/23 Rx 625 mg (10 billion cell) capsule (Advanced Probiotic) multivitamin 1 tab PO QAM 04/25/23 04/25/23 History Patient History Medical History (Updated 04/25/23 @ 11:06 by Cheyenne Mckenzie PA-C) Abdominal pain Acute pancreatitis HTN (hypertension) Leukocytosis Pancreatic adenocarcinoma Family History (Updated 04/25/23 @ 11:17 by Cheyenne Mckenzie PA-C) Mother Stroke Hypertension Diabetes Alcoholism Father Alcoholism Diabetes Heart disease Social History Smoking Status: Never smoker Cigarettes Per Day: 1 pk/week; Hx Alcohol Use: No Hx Substance Use: No Preferred Language: Arabic Communication Ability: Effective Early Childhood Specialist Required: No Beliefs That Will Affect Care: None Current Living Situation: Spouse Current Living Situation Comment: Lives at home with , 2 dogs, and many cats Other Information That Helps Us Care for You: No Feels Safe at Home: Yes Assistive Devices: Glasses Review of Systems Review of Systems: All systems reviewed & are unremarkable except as noted in HPI & below Physical Exam Constitutional: well developed, well nourished and comfortable; no acute distress Eyes: Sclera anicteric, no conjunctival injection ENMT: dry mucous membranes, no pallor Neck: trachea midline supple Respiratory: normal respiratory effort, lungs clear to auscultation Cardiovascular: RRR, no murmur, no edema Gastrointestinal (Abdomen): normal bowel sounds, soft, nontender, no hepatosplenomegaly Inspection/Auscultation: abdomen normal to inspection and normal bowel sounds; abdomen not distended + moderate TTP to the epigastrium; no rebound, guarding, rigidity Skin: no rashes, warm and dry Neurologic: alert and oriented x 3, no obvious focal neuro deficit Psychiatric: normal mood and affect Results & Data Vital Signs (Past 12 Hours) Vital Signs Temp Pulse Resp BP Pulse Ox O2 Del Method 04/25/23 13:30 78 21 96 04/25/23 13:30 150/90 H 04/25/23 13:00 89 21 96 04/25/23 13:00 131/83 04/25/23 12:30 86 16 92 04/25/23 12:30 147/84 H 04/25/23 12:00 88 24 97 04/25/23 12:00 138/93 04/25/23 11:30 72 14 92 04/25/23 11:30 159/90 H 04/25/23 12:45 78 04/25/23 11:00 85 22 96 04/25/23 11:00 161/92 H 04/25/23 10:30 85 18 97 04/25/23 10:24 157/92 H 04/25/23 10:24 83 13 97 04/25/23 10:00 81 20 98 04/25/23 09:30 68 19 93 04/25/23 09:30 143/73 H 04/25/23 09:01 155/72 H 04/25/23 09:01 58 L 17 99 04/25/23 09:00 60 22 100 04/25/23 08:51 67 20 99 04/25/23 09:12 60 98 04/25/23 08:52 69 04/25/23 08:48 36.4 C L 68 20 154/107 H 100 Room Air Laboratory Results 04/25/23 04/25/23 04/25/23 Range/Units 10:20 09:00 08:50 WBC (4.8-10.8) K/ul RBC (4.20-5.40) M/uL Hgb (12.0-16.0) g/dl Hct (37.0-47.0) % MCV (80.0-100.0) fL MCH (25.0-34.0) pg MCHC (32.0-36.0) g/dL RDW Std Deviation (36.4-46.3) fL RDW Coeff of Ivon (11.5-14.5) % Plt Count (130-400) K/uL MPV (9.4-12.4) fL Immature Gran % (Auto) % Neut % (Auto) % Lymph % (Auto) % [place] % (Auto) % Eos % (Auto) % Baso % (Auto) % Neut # (Auto) (1.40-6.50) K/uL Lymph # (Auto) (1.2-3.4) K/uL [place] # (Auto) (0.11-0.59) K/uL Eos # (Auto) (0-0.50) K/uL Baso # (Auto) (0-0.2) K/uL Immature Gran # (Auto) (0.01-0.20) K/uL Sodium 141 (136-145) mmol/L Potassium 3.8 (3.5-5.1) mmol/L Chloride 111 H (98-107) mmol/L Carbon Dioxide 21 (21-32) mmol/L Anion Gap 9 (3-11) BUN 26 H (6-23) mg/dl Creatinine 0.72 (0.6-1.2) mg/dl Est Cr Clr Drug Dosing 66.5 ml/min Est GFR ( Amer) 99.0 ml/min Est GFR (Non-Af Amer) 85.4 ml/min BUN/Creatinine Ratio 36.1 H (10-20) Glucose 144 H (70-99(Fasting)) mg/dl Calcium 9.6 (8.6-10.3) mg/dl Total Bilirubin 0.7 (0.2-1.0) mg/dl AST 16 (13-39) U/L ALT 15 (7-52) U/L Alkaline Phosphatase 93 (34-104) U/L Troponin I High Sens 3.5 (0-14) pg/ml Total Protein 7.3 (6.0-8.3) gm/dl Albumin 4.1 (3.4-5.0) gm/dl Globulin 3.2 (2.5-4.0) gm/dl Albumin/Globulin Ratio 1.3 (0.9-2) Triglycerides 140 (0-150) mg/dl Lipase 5422 H (11-82) U/L Urine Color Yellow Urine Appearance Clear (Clear) Urine pH 5.5 (4.5-7.5) Ur Specific [place] 1.025 (1.000-1.030) Urine Protein Negative (Negative) Urine Glucose (UA) Negative (Negative) Urine Ketones Negative (Negative) Urine Blood Negative (Negative) Urine Nitrite Negative (Negative) Urine Bilirubin Negative (Negative) Urine Urobilinogen Negative (Negative) Ur Leukocyte Esterase Negative (Negative) SARS-CoV-2, RNA, NAAT NEGATIVE (NEGATIVE) 04/25/23 Range/Units 08:50 WBC 18.02 H (4.8-10.8) K/ul RBC 4.94 (4.20-5.40) M/uL Hgb 14.3 (12.0-16.0) g/dl Hct 43.0 (37.0-47.0) % MCV 87.0 (80.0-100.0) fL MCH 28.9 (25.0-34.0) pg MCHC 33.3 (32.0-36.0) g/dL RDW Std Deviation 44.3 (36.4-46.3) fL RDW Coeff of Ivon 14.0 (11.5-14.5) % Plt Count 292 (130-400) K/uL MPV 11.7 (9.4-12.4) fL Immature Gran % (Auto) 0.4 % Neut % (Auto) 88.3 % Lymph % (Auto) 7.0 % [place] % (Auto) 3.6 % Eos % (Auto) 0.4 % Baso % (Auto) 0.3 % Neut # (Auto) 15.91 H (1.40-6.50) K/uL Lymph # (Auto) 1.26 (1.2-3.4) K/uL [place] # (Auto) 0.64 H (0.11-0.59) K/uL Eos # (Auto) 0.07 (0-0.50) K/uL Baso # (Auto) 0.06 (0-0.2) K/uL Immature Gran # (Auto) 0.08 (0.01-0.20) K/uL Sodium (136-145) mmol/L Potassium (3.5-5.1) mmol/L Chloride (98-107) mmol/L Carbon Dioxide (21-32) mmol/L Anion Gap (3-11) BUN (6-23) mg/dl Creatinine (0.6-1.2) mg/dl Est Cr Clr Drug Dosing ml/min Est GFR ( Amer) ml/min Est GFR (Non-Af Amer) ml/min BUN/Creatinine Ratio (10-20) Glucose (70-99(Fasting)) mg/dl Calcium (8.6-10.3) mg/dl Total Bilirubin (0.2-1.0) mg/dl AST (13-39) U/L ALT (7-52) U/L Alkaline Phosphatase (34-104) U/L Troponin I High Sens (0-14) pg/ml Total Protein (6.0-8.3) gm/dl Albumin (3.4-5.0) gm/dl Globulin (2.5-4.0) gm/dl Albumin/Globulin Ratio (0.9-2) Triglycerides (0-150) mg/dl Lipase (11-82) U/L Urine Color Urine Appearance (Clear) Urine pH (4.5-7.5) Ur Specific [place] (1.000-1.030) Urine Protein (Negative) Urine Glucose (UA) (Negative) Urine Ketones (Negative) Urine Blood (Negative) Urine Nitrite (Negative) Urine Bilirubin (Negative) Urine Urobilinogen (Negative) Ur Leukocyte Esterase (Negative) SARS-CoV-2, RNA, NAAT (NEGATIVE) Diagnostic Findings CTAP: CT DOSE: 1167.67 mGy.cm HISTORY: epigastric pain, vomiting. hx of pancreatitis TECHNIQUE: Multiaxial CT images of the abdomen and pelvis were performed following the use of intravenous contrast. A dose lowering technique was utilized adhering to the principles of ALARA. COMPARISON STUDY: Abdomen and pelvis CT 03/08/2023 FINDINGS: Small patchy densities noted at the base of the left lower lobe. No pneumoperitoneum. No pneumatosis. No suspicious lytic or blastic osseous le sions. Mild hepatic steatosis. The hepatic masses. The main portal vein is patent. The spleen, adrenal glands, and kidneys unremarkable. Mild calcified plaque within the normal caliber abdominal aorta. The superior mesenteric artery is patent. No retroperitoneal lymphadenopathy. There is progressive edema/fluid both within and surrounding the head and body of the pancreas consistent with acute pancreatitis. No evidence for pancreatic necrosis at this time. No loculated fluid collections identified. Focal dilatation of the proximal main pancreatic duct within the tail on image 99 which measures up to 5 mm which demonstrates an abrupt cut off. There is suggestion of a subtle heterogeneous lesion within the pancreatic tail at this abrupt cut off at the dilated main pancreatic duct best seen on image 93. This suspected lesion measures 2.1 x 1.8 cm. This abuts and focally narrows the mid splenic vein best seen on image 91. Therefore, this is highly suspicious for a pancreatic adenocarcinoma. The bladder, uterus, bilateral adnexa are unremarkable. No pelvic free fluid. Colonic diverticulosis. No evidence for acute diverticulitis. No bowel wall thickening or obstruction. Normal appendix. IMPRESSION: 1. Interval progression of the acute pancreatitis with progressive peripancreatic fluid/edema. 2. There is a 2.1 x 1.8 cm subtle lesion within the pancreatic tail. This is located at the abrupt cut off of the dilated main pancreatic duct as well as resulting in focal narrowing of the adjacent mid splenic vein. Therefore, this is highly suspicious for a pancreatic adenocarcinoma. GI consultation recommended. 3. Small patchy densities the base of the left lower lobe. This likely represent dependent change/atelectasis. A low-grade pneumonitis could also a similar appearance. 4. Hepatic steatosis. 5. Additional findings as described above.
[2023-04-25] MEDS: amLODIPine BESYLATE 5 MG TAB PO SCH (15:24)
[2023-04-25] MEDS: ACETAMINOPHEN 500 MG TAB PO SCH ×2 (15:24→21:27)
[2023-04-25] MEDS: lisinopril 40 MG TAB PO SCH (15:24)
[2023-04-25] MEDS: FERROUS SULFATE 325 MG TAB PO SCH (15:25)
[2023-04-25] MEDS: MULTIVITAMIN TAB PO SCH (15:25)
[2023-04-25] MEDS ORDERED: METOCLOPRAMIDE HCL INJ 5 MG/ML 2 ML VIAL IV ONE (15:53)
[2023-04-25] MEDS ORDERED: NON-FORMULARY MEDICATION (Coq10 (Ubiquinol) 200 mg Capsule) PO SCH (21:00)
[2023-04-25] MEDS ORDERED: VITAMIN K2 100 MCG PO SCH (21:00)
[2023-04-25] MEDS ORDERED: KETOROLAC TROMETHAMINE 15 MG/ML VIAL IV ONE (21:26)
[2023-04-25] MEDS: CALCIUM 600MG + VIT D 400 IU TAB PO SCH (21:27)
[2023-04-25] MEDS: CHOLECALCIFEROL 1,000 UNITS 25 MCG TAB PO SCH (21:27)
[2023-04-25] MEDS: VITAMIN B COMPLEX TAB PO SCH (21:27)
[2023-04-25] MEDS: oxyCODONE HCL IR 5 MG TAB (IMMEDIATE RELEASE) PO PRN (21:49)
[2023-04-26] MEDS: HYDROmorphone INJ 0.5 MG/0.5 ML SYR IV PRN ×4 (01:42→20:33)
[2023-04-26] MEDS: SODIUM CHLORIDE 0.9% 1000ML 1,000 ML IV SCH ×3 (02:46→17:18)
[2023-04-26] MEDS: oxyCODONE HCL IR 5 MG TAB (IMMEDIATE RELEASE) PO PRN ×3 (04:21→19:31)
[2023-04-26] MEDS: ACETAMINOPHEN 500 MG TAB PO SCH ×3 (06:00→23:03)
[2023-04-26 07:39] LABS: Hemoglobin 13.1 g/dl (12.0-16.0); Mean Corpuscular Hemoglobin 29.2 pg (25.0-34.0); Mean Corpuscular Hgb Conc 33.6 g/dL (32.0-36.0); Mean Corpuscular Volume 86.9 fL (80.0-100.0); Platelet Count 289 K/uL (130-400); RDW Coefficient of Variation 14.1 % (11.5-14.5); RDW Standard Deviation 45.1 fL (36.4-46.3); Red Blood Count 4.49 M/uL (4.20-5.40); White Blood Count 22.77 K/ul (4.8-10.8)
[2023-04-26 07:57] LABS: BUN Creatinine Ratio 27.7 (10-20); Calcium 8.7 mg/dl (8.6-10.3); Creatinine Clr Calc Pharmacy 114.7 ml/min; Est GFR (African American) 116.8 ml/min; Est GFR (Non-African American) 100.8 ml/min; Potassium 3.7 mmol/L (3.5-5.1)
[2023-04-26] MEDS: bisacodyL 5 MG TABEC PO SCH (08:31)
[2023-04-26] MEDS: ATORVASTATIN 20 MG TAB PO SCH (08:31)
[2023-04-26] MEDS: amLODIPine BESYLATE 5 MG TAB PO SCH (08:31)
[2023-04-26] MEDS: ADVANCED PROBIOTIC 1250 MG CAPSULE PO SCH (08:31)
[2023-04-26] MEDS: POLYETHYLENE (MIRALAX) 17 GM PACK PO SCH (08:32)
[2023-04-26] MEDS: lisinopril 40 MG TAB PO SCH (08:32)
[2023-04-26] MEDS: MULTIVITAMIN TAB PO SCH (08:32)
[2023-04-26] MEDS: ENOXAPARIN INJ 40 MG/0.4 ML SYR SQ SCH (08:32)
--- NOTE | 2023-04-26 09:22 | Gastroenterology Progress Note ---
Date of Service April 26, 2023 Assessment & Plan (1) Pancreatitis: Plan: Subjectively she feels much better and she looks like she feels well. Only concern is rising WBC. Will follow Admission and Anticipated Discharge Date Admission Date: April 25, 2023 Subjective Feeling much better. If yesterday was 10 of 10 today is a 7. Tolerating clear liquids. WBC up though Physical Exam Physical Exam: She looks well Results & Data Vital Signs (Past 12 Hours) Vital Signs Temp Pulse Resp BP Pulse Ox O2 Del Method 04/26/23 07:56 36.9 C 87 16 162/85 H 93 Room Air
--- NOTE | 2023-04-26 12:15 | Hospitalist Progress Note ---
Date of Service April 26, 2023 Assessment & Plan (1) Pancreatic adenocarcinoma: (2) Pancreatitis: (3) Abdominal pain, acute, epigastric: Plan: - Recent diagnosis of pancreatic adenocarcinoma diagnosed via EUS on 04/09/23 - pt was scheduled to follow up with surgical oncology at [place] 04/25, however due to presentation with nausea, vomiting and abd pain was unable to make it to the appointment and proceeded to the ER 04/25. - Lipase upon arrival is 5422, WBC is 18 K. TG level normal. - CT of the abdomen reviewed showing: CT of abd/pelvis is reviewed showing interval progression of acute pancreatitis with progressive peripancreatic fluid and edema. Again it shows the 2.1 x 1.8 cm subtle lesion within the pancreatic tail. No pancreatic necrosis or loculated fluid collections. Focal dilatation of the proximal main pancreatic duct within the tail. - Allow clear liquid diet, advance to full by evening if tolerated. - NSS at 100 ml/hrs; can dc one tolerating full liq - Pain control, antiemetics, bowel regimen - Pt will need follow up with [place] surgical oncology after this acute hospital stay for further plan and care - WBC elevation likely 2/2 pancreatic cancer, procal neg, will follow bl cx. monitor off atb. (4) HTN (hypertension): Plan: - May continue amlodipine and atorvastatin DVT ppx: lovenox subq CODE: Full code Dispo: From home, likely to remain in the hospital for 1-2 days Admission and Anticipated Discharge Date Admission Date: April 25, 2023 Subjective Pt seen and examined at bedside as a f/u of acute pancreatitis on the background of pancreatic adenocarcinoma and leucocytosis. Pt was lying semi upright in bed, nad, no new acute events overnight, reports tolerating liquid diet well, denied further n,v in hospital, reports abd pain improving. Denies headache/neckache, fever, chills, cough, sore throat, diarrhea, pain/burn w/ passing urine, open wound anywhere in the body. Physical Exam Physical Exam: GENERAL: Alert and oriented x3. NAD, on RA. HEENT: No pallor, no icterus. Pupils equal, round and reactive to light. Oral mucosa moist. NECK: No JVD, no neck masses. HEART: S1 and S2 heard. Regular rate and rhythm. No murmur, no gallop. RESPIRATORY SYSTEM: Normal AP diameter. No accessory muscle use. No wheezing, no crackles. ABDOMEN: Soft, bowel sounds present, Epigastric tender - mild, no distention. CENTRAL NERVOUS SYSTEM: No facial droop. Speech is clear. Obeys simple commands. Moves extremities. EXTREMITIES: No edema, no erythema seen. Results & Data Results & Data Vital Signs (Past 12 Hours) Vital Signs Temp Pulse Resp BP Pulse Ox O2 Del Method 04/26/23 07:56 36.9 C 87 16 162/85 H 93 Room Air
[2023-04-26] MEDS: CHOLECALCIFEROL 1,000 UNITS 25 MCG TAB PO SCH (20:37)
[2023-04-26] MEDS: CALCIUM 600MG + VIT D 400 IU TAB PO SCH (20:37)
[2023-04-26] MEDS: VITAMIN B COMPLEX TAB PO SCH (20:37)
[2023-04-27] MEDS: HYDROmorphone INJ 0.5 MG/0.5 ML SYR IV PRN ×6 (01:40→22:40)
[2023-04-27] MEDS: SODIUM CHLORIDE 0.9% 1000ML 1,000 ML IV SCH ×3 (03:21→22:44)
[2023-04-27] MEDS: oxyCODONE HCL IR 5 MG TAB (IMMEDIATE RELEASE) PO PRN ×3 (03:23→20:53)
[2023-04-27] MEDS: ACETAMINOPHEN 500 MG TAB PO SCH ×3 (07:08→22:39)
[2023-04-27] MEDS: ATORVASTATIN 20 MG TAB PO SCH (08:29)
[2023-04-27] MEDS: MULTIVITAMIN TAB PO SCH (08:29)
[2023-04-27] MEDS: amLODIPine BESYLATE 5 MG TAB PO SCH (08:30)
[2023-04-27] MEDS: ADVANCED PROBIOTIC 1250 MG CAPSULE PO SCH (08:30)
[2023-04-27] MEDS: lisinopril 40 MG TAB PO SCH (08:30)
[2023-04-27] MEDS: ENOXAPARIN INJ 40 MG/0.4 ML SYR SQ SCH (08:31)
[2023-04-27] MEDS: bisacodyL 5 MG TABEC PO SCH (08:35)
[2023-04-27] MEDS: POLYETHYLENE (MIRALAX) 17 GM PACK PO SCH (08:35)
--- NOTE | 2023-04-27 09:51 | Gastroenterology Progress Note ---
Date of Service April 27, 2023 Assessment & Plan (1) Pancreatitis: Plan: Slowly improving. No new recs. Admission and Anticipated Discharge Date Admission Date: April 25, 2023 Subjective A little better. Before pain meds her pain is a 5-6 now instead of a 7 Physical Exam Physical Exam: She looks well Results & Data Vital Signs (Past 12 Hours) Vital Signs Temp Pulse Resp BP Pulse Ox O2 Del Method 04/27/23 07:36 36.8 C 84 16 144/79 H 96 Room Air
--- NOTE | 2023-04-27 14:43 | Hospitalist Progress Note ---
Date of Service April 27, 2023 Assessment & Plan (1) Pancreatic adenocarcinoma: (2) Pancreatitis: (3) Abdominal pain, acute, epigastric: Plan: - Recent diagnosis of pancreatic adenocarcinoma diagnosed via EUS on 04/09/23 - pt was scheduled to follow up with surgical oncology at [place] 04/25, however due to presentation with nausea, vomiting and abd pain was unable to make it to the appointment and proceeded to the ER 04/25. - Lipase upon arrival is 5422, WBC is 18 K. TG level normal. - CT of the abdomen reviewed showing: CT of abd/pelvis is reviewed showing interval progression of acute pancreatitis with progressive peripancreatic fluid and edema. Again it shows the 2.1 x 1.8 cm subtle lesion within the pancreatic tail. No pancreatic necrosis or loculated fluid collections. Focal dilatation of the proximal main pancreatic duct within the tail. - Full liq diet for today, if worsening belly pain, switch back to clear liq - NSS at 100 ml/hrs; can dc one tolerating full liq. continue for today. - Pain control, antiemetics, bowel regimen - Pt will need follow up with [place] surgical oncology after this acute hospital stay for further plan and care - WBC elevation likely 2/2 pancreatic cancer, procal neg, will follow bl cx. monitor off atb. (4) HTN (hypertension): Plan: - May continue amlodipine and atorvastatin DVT ppx: lovenox subq CODE: Full code Dispo: From home, pending belly pain improvement/advancement of diet. Admission and Anticipated Discharge Date Admission Date: April 25, 2023 Subjective Pt seen and examined at bedside as a f/u of acute pancreatitis on the background of pancreatic adenocarcinoma and leucocytosis. Pt was lying semi upright in bed, nad, no new acute events overnight, reports tolerating liquid diet well but she tried full liq as well and wants to switch between the two depending on her belly pain status, denied further n,v in hospital, reports abd pain slowly improving. Denies headache/neckache, fever, chills, cough, sore throat, diarrhea, pain/burn w/ passing urine, open wound anywhere in the body. Physical Exam Physical Exam: GENERAL: Alert and oriented x3. NAD, on RA. HEENT: No pallor, no icterus. Pupils equal, round and reactive to light. Oral mucosa moist. NECK: No JVD, no neck masses. HEART: S1 and S2 heard. Regular rate and rhythm. No murmur, no gallop. RESPIRATORY SYSTEM: Normal AP diameter. No accessory muscle use. No wheezing, no crackles. ABDOMEN: Soft, bowel sounds present, Epigastric tender - mild, no distention. CENTRAL NERVOUS SYSTEM: No facial droop. Speech is clear. Obeys simple commands. Moves extremities. EXTREMITIES: No edema, no erythema seen. Results & Data Results & Data Vital Signs (Past 12 Hours) Vital Signs Temp Pulse Resp BP Pulse Ox O2 Del Method 04/27/23 07:36 36.8 C 84 16 144/79 H 96 Room Air
[2023-04-27] MEDS: CHOLECALCIFEROL 1,000 UNITS 25 MCG TAB PO SCH (20:54)
[2023-04-27] MEDS: CALCIUM 600MG + VIT D 400 IU TAB PO SCH (20:54)
[2023-04-27] MEDS: VITAMIN B COMPLEX TAB PO SCH (20:54)
[2023-04-28] MEDS: HYDROmorphone INJ 0.5 MG/0.5 ML SYR IV PRN ×5 (03:11→23:13)
[2023-04-28] MEDS: oxyCODONE HCL IR 5 MG TAB (IMMEDIATE RELEASE) PO PRN ×2 (05:35→21:32)
[2023-04-28] MEDS: ACETAMINOPHEN 500 MG TAB PO SCH ×3 (05:36→22:21)
[2023-04-28 07:15] LABS: Hematocrit (blood only) 32.9 % (37.0-47.0); Hemoglobin 10.6 g/dl (12.0-16.0); Mean Corpuscular Hemoglobin 28.7 pg (25.0-34.0); Mean Corpuscular Hgb Conc 32.2 g/dL (32.0-36.0); Mean Corpuscular Volume 89.2 fL (80.0-100.0); Mean Platelet Volume 12.4 fL (9.4-12.4); Platelet Count 196 K/uL (130-400); RDW Coefficient of Variation 14.1 % (11.5-14.5); RDW Standard Deviation 45.6 fL (36.4-46.3); Red Blood Count 3.69 M/uL (4.20-5.40); White Blood Count 13.84 K/ul (4.8-10.8)
[2023-04-28 07:35] LABS: BUN Creatinine Ratio 13.7 (10-20); Calcium 8.4 mg/dl (8.6-10.3); Creatinine Clr Calc Pharmacy 105.7 ml/min; Est GFR (African American) 113.7 ml/min; Est GFR (Non-African American) 98.1 ml/min; Magnesium 1.9 mg/dl (1.7-2.4); Phosphorus 1.8 mg/dl (2.5-4.9); Potassium 3.1 mmol/L (3.5-5.1)
[2023-04-28] MEDS: ADVANCED PROBIOTIC 1250 MG CAPSULE PO SCH (07:46)
[2023-04-28] MEDS: bisacodyL 5 MG TABEC PO SCH (07:47)
[2023-04-28] MEDS: ENOXAPARIN INJ 40 MG/0.4 ML SYR SQ SCH (07:47)
[2023-04-28] MEDS: amLODIPine BESYLATE 5 MG TAB PO SCH (07:47)
[2023-04-28] MEDS: ATORVASTATIN 20 MG TAB PO SCH (07:47)
[2023-04-28] MEDS: lisinopril 40 MG TAB PO SCH (07:47)
[2023-04-28] MEDS: POLYETHYLENE (MIRALAX) 17 GM PACK PO SCH (07:48)
[2023-04-28] MEDS: SODIUM CHLORIDE 0.9% 1000ML 1,000 ML IV SCH (08:41)
[2023-04-28] MEDS: MULTIVITAMIN TAB PO SCH (10:26)
[2023-04-28] MEDS: POTASSIUM CHLORIDE CRTAB 20 MEQ TABCR PO SCH ×2 (10:26→12:00)
--- NOTE | 2023-04-28 11:24 | Gastroenterology Progress Note ---
Date of Service April 28, 2023 Assessment & Plan (1) Pancreatitis: Plan: Patient is a 68 years old female with recent diagnosis of pancreatic adenocarcinoma, diagnosed via EUS last month. She was admitted with symptoms of nausea, vomiting and abdominal pain consistent with pancreatitis. Clinically improved. - Keep Telemedicine appt with Dr. Kwame Samuels (GI Surgery, [facility] [place]) today. - Low fat diet - May DC IVF if tolerating PO - Symptomatic management - GI to sign off; pls recall prn Admission and Anticipated Discharge Date Admission Date: April 25, 2023 Supervising Physician Co-Signing Physician Notes 68 yo fm with recent diagnosis of pancreatic cancer (confirmed via eus), admitted with nausea/vomiting/abd pain and found to have pancretitis- missed her appointment with surgery in [place] as a result of this admission. Clinically has improved from her nausea/vomiting/pain. PE as documented, benign abdomen, wearing a [place] shirt Agree with further plan of care as documented. Subjective Patient is doing quite well, denies any fevers, chills, chest pain or shortness of breath overnight. Had a bowel movement this morning. Passing flatus. Denies any abdominal pain, nausea or vomiting. Review of Systems Review of Systems: All systems reviewed & are unremarkable except as noted in HPI & below Physical Exam Constitutional: WD/WN, vitals as above well groomed, cooperative and comfortable Eyes: PERRL, conjunctivae normal, anicteric sclerae ENMT: external ear and nose normal, oropharynx normal Respiratory: normal respiratory effort, lungs clear to auscultation Cardiovascular: RRR, no murmur, no edema Gastrointestinal (Abdomen): normal bowel sounds, soft, nontender, no hepatosplenomegaly Skin: no rashes, warm and dry no jaundice Psychiatric: A+Ox3, euthymic affect Lymphatic: no lymphedema Results & Data Vital Signs (Past 12 Hours) Vital Signs Temp Pulse Resp BP Pulse Ox O2 Del Method 04/28/23 07:25 36.9 C 70 16 135/78 96 Room Air
[2023-04-28] MEDS: POT PHOSPHATE MONOBASIC W/ SOD TAB PO SCH ×3 (12:01→22:20)
[2023-04-28] MEDS: FERROUS SULFATE 325 MG TAB PO SCH (15:28)
--- NOTE | 2023-04-28 16:18 | Hospitalist Progress Note ---
Date of Service April 28, 2023 Assessment & Plan (1) Pancreatic adenocarcinoma: (2) Pancreatitis: (3) Abdominal pain, acute, epigastric: Plan: - Recent diagnosis of pancreatic adenocarcinoma diagnosed via EUS on 04/09/23 - pt was scheduled to follow up with surgical oncology at [place] 04/25, however due to presentation with nausea, vomiting and abd pain was unable to make it to the appointment and proceeded to the ER 04/25. - Lipase upon arrival is 5422, WBC is 18 K. TG level normal. - CT of the abdomen reviewed showing: CT of abd/pelvis is reviewed showing interval progression of acute pancreatitis with progressive peripancreatic fluid and edema. Again it shows the 2.1 x 1.8 cm subtle lesion within the pancreatic tail. No pancreatic necrosis or loculated fluid collections. Focal dilatation of the proximal main pancreatic duct within the tail. -Patient tolerating full liquid diet with no associated increase in abdominal pain, will advance to soft diet. Patient still with intermittent upper belly pain, patient advised to use as needed pain medication. Her abdomen pain likely could be due to her underlying malignancy. DC IV fluid today. -Patient with no further nausea or vomiting while in hospital. - Pain control, antiemetics, bowel regimen - Pt will need follow up with [facility] surgical oncology after this acute hospital stay for further plan and care - WBC elevation likely 2/2 pancreatic cancer, procal neg, will follow bl cx -no growth so far.. monitor off atb. (4) HTN (hypertension): Plan: - May continue amlodipine and atorvastatin DVT ppx: lovenox subq CODE: Full code Dispo: From home, pending belly pain improvement/advancement of diet. Admission and Anticipated Discharge Date Admission Date: April 25, 2023 Subjective Pt seen and examined at bedside as a f/u of acute pancreatitis on the background of pancreatic adenocarcinoma and leucocytosis. Pt was lying in bed, nad, upper belly pain intermittently throughout the night but not associated with eating and also not associated with nausea or vomiting, reports tolerating full liquid diet well being advanced to soft diet today, denied further n,v in hospital. Nontender abdomen on exam. Denies headache/neckache, fever, chills, cough, sore throat, diarrhea, pain/burn w/ passing urine, open wound anywhere in the body. Patient advised to use pain medication for her belly pain with likely could be due to her underlying malignancy rather than acute pancreatitis at this moment. Advancing diet and likely DC tomorrow if no worsening of her belly pain. Will DC IV fluid today. Physical Exam Physical Exam: GENERAL: Alert and oriented x3. NAD, on RA. HEENT: No pallor, no icterus. Pupils equal, round and reactive to light. Oral mucosa moist. NECK: No JVD, no neck masses. HEART: S1 and S2 heard. Regular rate and rhythm. No murmur, no gallop. RESPIRATORY SYSTEM: Normal AP diameter. No accessory muscle use. No wheezing, no crackles. ABDOMEN: Soft, bowel sounds present, Epigastric tender -none, no distention. CENTRAL NERVOUS SYSTEM: No facial droop. Speech is clear. Obeys simple commands. Moves extremities. EXTREMITIES: No edema, no erythema seen. Results & Data Results & Data Vital Signs (Past 12 Hours) Vital Signs Temp Pulse Pulse Resp BP Pulse Ox O2 Del Method 04/28/23 14:57 37.0 C 84 16 128/81 96 Room Air 04/28/23 11:15 36.8 C 81 12 148/80 H 98 Room Air 04/28/23 07:25 36.9 C 70 16 135/78 96 Room Air
[2023-04-28] MEDS: CALCIUM 600MG + VIT D 400 IU TAB PO SCH (20:00)
[2023-04-28] MEDS: VITAMIN B COMPLEX TAB PO SCH (20:00)
[2023-04-28] MEDS: CHOLECALCIFEROL 1,000 UNITS 25 MCG TAB PO SCH (20:00)
[2023-04-29] MEDS: HYDROmorphone INJ 0.5 MG/0.5 ML SYR IV PRN (05:14)
[2023-04-29] MEDS: ACETAMINOPHEN 500 MG TAB PO SCH (05:36)
[2023-04-29] MEDS: ENOXAPARIN INJ 40 MG/0.4 ML SYR SQ SCH (07:27)
[2023-04-29] MEDS: POT PHOSPHATE MONOBASIC W/ SOD TAB PO SCH ×2 (08:04→12:13)
[2023-04-29] MEDS: bisacodyL 5 MG TABEC PO SCH (08:05)
[2023-04-29] MEDS: ATORVASTATIN 20 MG TAB PO SCH (08:05)
[2023-04-29] MEDS: amLODIPine BESYLATE 5 MG TAB PO SCH (08:05)
[2023-04-29] MEDS: lisinopril 40 MG TAB PO SCH (08:05)
[2023-04-29] MEDS: MULTIVITAMIN TAB PO SCH (08:05)
[2023-04-29] MEDS: POLYETHYLENE (MIRALAX) 17 GM PACK PO SCH (08:06)
[2023-04-29] MEDS: ADVANCED PROBIOTIC 1250 MG CAPSULE PO SCH (08:06)
[2023-04-29 10:24] LABS: Hemoglobin 11.4 g/dl (12.0-16.0); Mean Corpuscular Hemoglobin 28.8 pg (25.0-34.0); Mean Corpuscular Hgb Conc 33.5 g/dL (32.0-36.0); Mean Corpuscular Volume 85.9 fL (80.0-100.0); Mean Platelet Volume 12.4 fL (9.4-12.4); Platelet Count 264 K/uL (130-400); RDW Standard Deviation 44.2 fL (36.4-46.3); Red Blood Count 3.96 M/uL (4.20-5.40); White Blood Count 11.58 K/ul (4.8-10.8)
[2023-04-29 10:44] LABS: Calcium 8.8 mg/dl (8.6-10.3); Creatinine Clr Calc Pharmacy 99.8 ml/min; Est GFR (African American) 111.6 ml/min; Est GFR (Non-African American) 96.3 ml/min; Phosphorus 3.9 mg/dl (2.5-4.9); Potassium 3.2 mmol/L (3.5-5.1)
[2023-04-29] MEDS: oxyCODONE HCL IR 5 MG TAB (IMMEDIATE RELEASE) PO PRN (11:25)
[2023-04-29] MEDS ORDERED: POTASSIUM CHLORIDE CRTAB 20 MEQ TABCR PO SCH (12:00)
--- NOTE | 2023-04-29 12:14 | Discharge Summary ---
Date of Service April 29, 2023 Admission HPI Per Admitting Provider This is a 68-year-old female with PMHx of recent diagnosis of pancreatic adenocarcinoma diagnosed via EUS on 04/09/23. Pt reports that she had been doing very well within the past two weeks, and states that the cancer is stage 1, no metastasis and no spread, and thought possible that she was having some anxiety this morning anticipating a surgical oncology consult at [facility] this morning to discuss her plan of care. She woke up at 6am this morning because of feeling a "rock" in her stomach and was uncomfortable, soon afterwards the pain intensified, followed by nausea and vomiting. Pt reports her pain is currently rated a 6/10 and radiates to the back. She denies any fever, chills and sweats. Pt has been tolerating food without difficulty prior to this event. Last BM was this morning and was regular. Pt pain is improved with dilaudid given in the ER. She is asking for something to drink due to feeling very [age]. Pt is present here with her spouse, Benita, who is very supportive. Pt reports her goal is to live until age 89. Pt denies any previous surgical history. Lipase upon arrival is 5422, WBC is 18 K, CT of abd/pelvis is reviewed showing interval progression of acute pancreatitis with progressive peripancreatic fluid and edema. Again it shows the 2.1 x 1.8 cm subtle lesion within the pancreatic tail. No pancreatic necrosis or loculated fluid collections. Focal dilatation of the proximal main pancreatic duct within the tail. Admission Exam Per Admitting Provider General: awake, alert, no apparent distress Head: Normocephalic, atraumatic ENT: PERRL, EOMI, no pharyngeal exudate, mucous membranes moist Chest: Clear to auscultation, on room air, no adventitious breath sounds Cardiac: Regular rate and rhythm, no murmur, no JVD, normal peripheral pulses, good capillary refill Abdominal: NABS x 4 quadrants, soft, nondistended, + RUQ tender to palpation, no rebound or guarding Extremities: Normal inspection, no peripheral edema or erythema, calfs nontender to palpation Psych: Normal mood and affect Neuro: AAO x 3, strength intact bilaterally and rated 5/5, no motor deficits, speech is clear, no peripheral sensory deficits Principal Diagnosis Pancreatic adenocarcinoma: Pancreatitis: Abdominal pain, acute, epigastric: Discharge Exam GENERAL: Alert and oriented x3. NAD, on RA. HEENT: No pallor, no icterus. Pupils equal, round and reactive to light. Oral mucosa moist. NECK: No JVD, no neck masses. HEART: S1 and S2 heard. Regular rate and rhythm. No murmur, no gallop. RESPIRATORY SYSTEM: Normal AP diameter. No accessory muscle use. No wheezing, no crackles. ABDOMEN: Soft, bowel sounds present, Epigastric tender -none, no distention. CENTRAL NERVOUS SYSTEM: No facial droop. Speech is clear. Obeys simple commands. Moves extremities. EXTREMITIES: No edema, no erythema seen. Discharge Data Allergies Allergy/AdvReac Type Severity Reaction Status Date / Time oak Allergy Severe EYES SWELL Verified 04/25/23 10:31 SHUT & CRACK AT CORNERS ANTIBIOTICS Allergy Severe SEE COMMENT Uncoded 04/25/23 10:31 Consultations 04/25/23 10:29 ED Decision to Admit Stat 04/25/23 10:42 Consult Gastroenterology Routine Ordered Studies 04/25/23 08:50 CT Abd and Pelvis [CT abd pelvis IV con only] Stat Hospital Course (1) Pancreatic adenocarcinoma: (2) Pancreatitis: (3) Abdominal pain, acute, epigastric: - Recent diagnosis of pancreatic adenocarcinoma diagnosed via EUS on 04/09/23 - pt was scheduled to follow up with surgical oncology at [place] 04/25, however due to presentation with nausea, vomiting and abd pain was unable to make it to the appointment and proceeded to the ER 04/25. - Lipase upon arrival is 5422, WBC is 18 K. TG level normal. - CT of the abdomen reviewed showing: CT of abd/pelvis is reviewed showing interval progression of acute pancreatitis with progressive peripancreatic fluid and edema. Again it shows the 2.1 x 1.8 cm subtle lesion within the pancreatic tail. No pancreatic necrosis or loculated fluid collections. Focal dilatation of the proximal main pancreatic duct within the tail. -Patient with no further nausea or vomiting while in hospital. Pain not exacerbated with diet. Patient does have pain though regardless of diet likely secondary to pancreatic cancer. Patient tolerating advance diet. - Pt will need follow up with [place] surgical oncology after this acute hospital stay for further plan and care - WBC elevation likely 2/2 pancreatic cancer and pancreatitis, procal neg, will follow bl cx -no growth so far.. monitor off atb. (4) HTN (hypertension): - continue amlodipine and atorvastatin DVT ppx: lovenox subq CODE: Full code Patient being discharged home with following instructions upon discharge: Plan Follow-up with your primary care physician within a week time and likely you will need labs CBC/CMP/magnesium/phosphorus. Follow up with your cancer doctor as scheduled tomorrow. You will be discharged on few days worth of pain meds for belly pain likely secondary pancreatic cancer, if with ongoing pain you will need further erwin luation for pain management/prescription. You can take [id number] Tylenol for mild to moderate pain and Percocet for severe pain. Your potassium level was on the lower side, you will be discharged on few days of low dose potassium supplement. Encourage to take potassium rich foods. You will need follow-up labs as mentioned above drawn at your PCP office in a week time. Please make sure that you are able to get your medications today by calling your pharmacy before you leave the hospital so that your treatment continuity is not broken. Home Health Attestation I certify that this patient is under my care and that I, or a physicians veterinary assistant working with me, had a face to-face encounter that meets the home health [id number] encounter requirements with this patient. The encounter with the patient was in whole, or in part, for the following medical condition, which is the primary reason for home health care (list medical condition): I certify that, based on my findings, the following services are medically necessary home health services: My clinical findings support the need for the above services because: Further, I certify that my clinical findings support that this patient is homebound (i.e. absences from home require considerable and taxing effort and are for medical reasons or shinto services or infrequently or of short duration when for other reasons) because: Certification for Home Health Services: Based on the above findings, I certify that this patient is confined to the home and needs intermittent halfway care, physical therapy and/or speech therapy or continues to need occupational therapy. The patient is under my care, and I have initiated the establishment of the plan of care. This patient will be followed by a physician who will periodically review the plan of care. Total Time Total Time Spent Total Time Spent (In Minutes): 45 Discharge Plan Discharge Items Patient Disposition: Home - Self-Care Reason For Visit: PANCREATITIS,PANCREATIC ADENOCARCINOMA Discharge Diagnosis: Pancreatic adenocarcinoma: Pancreatitis: Abdominal pain, acute, epigastric: Activity: Resume your previous activity Non-emergency contact: Primary Care Provider Call non-emergency contact if: you have any medication questions Follow-up/Referrals: Wilmar Wilkinson MD [Surgeon] - (Date & Time 04/30/2023 12:15 PM Provider Wilmar Wilkinson MD Department Hematology/Oncology [facility] ) Amauri Antony MD [Primary Care Provider] - (Date & Time 05/05/2023 11:00 AM Provider Amauri Antony MD Department Family Practice [facility] ) Diet: Heart Healthy and Low Fat Addtl Attending Provider Instructions: Follow-up with your primary care physician within a week time and likely you will need labs CBC/CMP/magnesium/phosphorus. Follow up with your cancer doctor as scheduled tomorrow. You will be discharged on few days worth of pain meds for belly pain likely secondary pancreatic cancer, if with ongoing pain you will need further evaluation for pain management/prescription. You can take [id number] Tyl enol for mild to moderate pain and Percocet for severe pain. Your potassium level was on the lower side, you will be discharged on few days of low dose potassium supplement. Encourage to take potassium rich foods. You will need follow-up labs as mentioned above drawn at your PCP office in a week time. Please make sure that you are able to get your medications today by calling your pharmacy before you leave the hospital so that your treatment continuity is not broken. Pending Studies at Discharge: Yes Stand-Alone Forms: My [employer], Smoking Cessation Medications and DC Order Prescriptions: New oxycodone-acetaminophen [Percocet] 5-325 mg tablet 1 tab PO Q6H PRN (Reason: pain (scale score 7-10)) 3 Days Qty: 12 0RF potassium chloride [Klor-Con M20] 20 mEq tablet,ER particles/crystals 20 meq PO DAILY 5 Days Qty: 5 0RF Continued B Complex Tablet Extended Release 1 tab PO QPM Qty: 0 Rx Instructions: UNKNOWN STRENGTH atorvastatin 20 mg tablet 20 mg PO QAM amlodipine 5 mg tablet 5 mg PO QAM ferrous sulfate [iron] 325 mg (65 mg iron) Tablet 325 mg PO [id number] Rx Instructions: Patient takes medication on Friday/Friday/Friday cholecalciferol (vitamin D3) [Vitamin D3] 25 mcg (1,000 unit) Capsule 1,000 mcg PO QPM Rx Instructions: PT UNSURE OF STRENGTH calcium carbonate-vitamin D3 [Calcium 600 + D(3)] 600 mg-10 mcg (400 unit) Tablet 1 tab PO QPM coQ10 (ubiquinol) 200 mg Capsule 200 mg PO QPM vitamin K2 (MK-4) 100 mcg Tablet 100 mcg PO QPM Qty: 0 Rx Instructions: UNKNOWN STRENGTH lisinopril 40 mg tablet 40 mg PO DAILY Advanced Probiotic 625 mg (10 billion cell) Capsule 2 cap PO DAILY Qty: 14 0RF multivitamin Tablet 1 tab PO QAM Discharge Orders: Discharge Order (Routine); Ordered 04/29/23 Ordered By: Real Kelly Admission Data Admit Date/Time: 04/25/23 10:42 Attending Provider: Real Kelly Admit Provider: Emmanuel Rodriguez Primary Care Provider: Amauri Antony Other Providers: Emmanuel Rodriguez ; Gaby Rojas
== END 2023-04-29 13:18 | disposition home or self-care (01) | DRG 435 ==
LOC: ED 08:40 → EDINP 10:42 → SUATTDRO 10:42 → 3W 14:25